=== PATIENT | female | born 1960 | race Caucasian/White ===

== ENCOUNTER → 2018-02-27 10:05 | Outpatient (CLI) | payer BC, SELFPAY ==
[2018-02-27 10:38] LABS: Specimen Label GENOVA
== END ==
PROVIDERS: PCP Anesthesiology Pain Medicine; Visit Provider Registered Nurse
DX: R19.8 Other specified symptoms and signs involving the digestive system and abdomen (principal); R53.83 Other fatigue; M85.80 Other specified disorders of bone density and structure, unspecified site
CPT/HCPCS: 36415; P9016

== ENCOUNTER → 2018-03-23 15:38 | Outpatient (CLI) | payer BC, SELFPAY ==
[2018-03-23 16:47] LABS: Alanine Aminotransferase 34 IU/L (9-52); Albumin 4.6 g/dL (3.5-5.0); Albumin Globulin Ratio 1.8 (1.0-2.8); Alkaline Phosphatase 92 U/L (38-126); Aspartate Aminotransferase 24 IU/L (14-36); Bilirubin Total 0.7 mg/dL (0.2-1.3); Blood Urea Nitrogen 23 mg/dL (7-17); Calcium 9.9 mg/dL (8.4-10.2); Carbon Dioxide 26 mmol/L (22-32); Chloride 103 mmol/L (98-107); Estimated Glomerular Filt Rate 56.7 mL/min (>60); Globulin 2.5 g/dL (1.7-4.1); Glucose 110 mg/dL (70-100); HEMOLYSIS < 15 (0-50); Potassium 4.3 mmol/L (3.4-5.1); Sodium 142 mmol/L (137-145); Total Protein 7.1 g/dL (6.3-8.2)
[2018-03-23 16:48] LABS: C-Reactive Protein Quant < 0.5 mg/dL (<1.0)
[2018-03-25 15:27] LABS: Homocysteine 11.7 umol/L (< 10.4)
[2018-03-27 14:46] LABS: Vitamin B6 39.6 ng/mL (2.1-21.7)
[2018-03-28 16:49] LABS: Methylmalonic Acid 187 nmol/L (87-318)
[2018-03-28 23:24] LABS: Zinc 74 mcg/dL (60-130)
== END ==
PROVIDERS: Visit Provider Registered Nurse
DX: T86.838 Other complications of bone graft (principal); E53.8 Deficiency of other specified B group vitamins; E53.9 Vitamin B deficiency, unspecified
CPT/HCPCS: 36415; 80053; 83090; 83921; 84207; 84630; 86140

== ENCOUNTER → 2018-03-31 10:08 | Outpatient (CLI) | payer BC, SELFPAY ==
[2018-03-31 11:06] LABS: Alanine Aminotransferase 26 IU/L (9-52); Albumin 4.3 g/dL (3.5-5.0); Albumin Globulin Ratio 1.9 (1.0-2.8); Alkaline Phosphatase 87 U/L (38-126); Aspartate Aminotransferase 21 IU/L (14-36); BUN Creatinine Ratio 12.5 (6-22); Bilirubin Total 0.8 mg/dL (0.2-1.3); Blood Urea Nitrogen 10 mg/dL (7-17); Calcium 9.4 mg/dL (8.4-10.2); Carbon Dioxide 29 mmol/L (22-32); Chloride 101 mmol/L (98-107); Estimated Glomerular Filt Rate > 60.0 mL/min (>60); Globulin 2.3 g/dL (1.7-4.1); Glucose 115 mg/dL (70-100); HEMOLYSIS < 15 (0-50); Potassium 3.9 mmol/L (3.4-5.1); Sodium 139 mmol/L (137-145); Total Protein 6.6 g/dL (6.3-8.2)
[2018-03-31 14:20] LABS: Microalbumi Creatinin Ratio Ur 15.9 ug/mg CR (<30); Microalbumin Urine Random 1.8 mg/dL (0-1.6)
== END ==
PROVIDERS: Visit Provider Registered Nurse
DX: R94.4 Abnormal results of kidney function studies (principal)
CPT/HCPCS: 36415; 80053; 82043; 82570

== ENCOUNTER → 2018-04-04 11:10 | Outpatient (CLI) | payer BC, SELFPAY ==
[2018-04-04 12:11] LABS: Add Manual Diff / Slide Review NO; Basophils Percent Auto 1.4 % (0-2); Eosinophils Percent Auto 3.2 % (2-4); Hematocrit 42.2 % (36-46); Hemoglobin 14.2 g/dL (12.0-16.0); Lymphocytes Percent Auto 27.9 % (25-40); Mean Corpuscular HGB Conc 33.7 % (30-36); Mean Corpuscular Hemoglobin 32.8 PG (26-34); Mean Corpuscular Volume 97.2 fL (80-100); Monocytes Percent Auto 8.4 % (3-14); Neutrophils Absolute Auto 3300 /uL (3000-5900); Neutrophils Percent Auto 59.1 % (50-75); Platelet Count 346 X10^3/uL (150-400); Red Blood Cell Count 4.34 X10^6/uL (4.0-5.2); Red Cell Distribution Width 12.4 % (11.6-14.8); White Blood Cell Count 5.6 X10^3/uL (4.5-11.0)
[2018-04-04 12:24] LABS: HEMOLYSIS < 15 (0-50); Iron 127 ug/dL (37-170)
[2018-04-04 12:31] LABS: Alanine Aminotransferase 36 IU/L (9-52); Albumin 4.7 g/dL (3.5-5.0); Albumin Globulin Ratio 1.9 (1.0-2.8); Alkaline Phosphatase 90 U/L (38-126); Aspartate Aminotransferase 27 IU/L (14-36); BUN Creatinine Ratio 12.5 (6-22); Bilirubin Total 1.2 mg/dL (0.2-1.3); Blood Urea Nitrogen 10 mg/dL (7-17); Calcium 9.9 mg/dL (8.4-10.2); Carbon Dioxide 29 mmol/L (22-32); Chloride 103 mmol/L (98-107); Estimated Glomerular Filt Rate > 60.0 mL/min (>60); Globulin 2.5 g/dL (1.7-4.1); Glucose 91 mg/dL (70-100); HEMOLYSIS < 15 (0-50); Potassium 4.6 mmol/L (3.4-5.1); Sodium 143 mmol/L (137-145); Total Protein 7.2 g/dL (6.3-8.2)
[2018-04-04 12:35] LABS: Percent Iron Saturation 38 % (15-50); Total Iron Binding Capacity 331 ug/dL (265-497); Transferrin 282 mg/dL (206-381)
[2018-04-04 12:58] LABS: Thyroid Stimulating Hormone 0.49 uIU/mL (0.47-4.68)
== END ==
PROVIDERS: Family Provider Anesthesiology Pain Medicine; PCP Registered Nurse; Visit Provider Physician Assistant
DX: R10.9 Unspecified abdominal pain (principal)
CPT/HCPCS: 36415; 80053; 83540; 83550; 84443; 85025

== ENCOUNTER → 2018-04-05 13:28 | Outpatient (CLI) | payer BC, SELFPAY ==
--- NOTE | 2018-04-05 13:39 | DI.CT.S_ITS ---
PROCEDURE: CT KIDNEY URETER BLADDER (KUB) INDICATIONS: Left flank pain TECHNIQUE: Noncontrast 5 mm thick sections acquired from the diaphragms to the symphysis. 5 mm thick coronal and sagittal reformats were then performed. For radiation dose reduction, the following was used: automated exposure control, adjustment of mA and/or kV according to patient size. COMPARISON: None. FINDINGS: Image quality: Excellent. Lung bases: Mild dependent bilateral lower lobe scarring versus atelectasis is present. There is a 12 mm diameter hypodensity within the lateral segment left hepatic lobe inferiorly measuring 14.4 Hounsfield units, which is indeterminate. Right hepatic lobe cyst is present anteroinferiorly measuring 40 mm. Lung bases are otherwise clear. Heart size is normal. Urinary system: Both kidneys are normal in size. There is an millimeter diameter region of cortical fat density within the superior pole left kidney laterally. No kidney stones. No hydronephrosis or perinephric fat stranding. Both ureters appear non-dilated throughout their expected courses. Urinary bladder is decompressed. Other solid organs: Liver is normal in size. Gallbladder demonstrates high density material within its lumen, consistent with sludge. Pancreas is normal in contours. Spleen is normal in size. No adrenal nodules. Peritoneum and bowel: Unenhanced bowel loops demonstrate normal wall thickness and caliber. No free fluid or air. Normal appendix. Nodes and vessels: No retroperitoneal or mesenteric adenopathy by size criteria. Aorta and inferior vena cava are normal in caliber. Abdominal wall: 11 mm fat-containing umbilical hernia. Pelvis: No free pelvic fluid. No inguinal hernias or adenopathy. Bones: No suspicious bony lesions. L5-S1 posterior fusion has been performed. Grade I anterolisthesis of L5 on S1 is present. No vertebral body compression fractures. IMPRESSION: 1. No evidence of urinary tract calcification, no retraction. 2. Normal appendix. 3. Small fat-containing umbilical hernia. 4. Small left superior pole renal angiomyolipoma. 5. Small indeterminate low-density focus within the lateral segment left hepatic lobe, which could be further assessed with ultrasound, if clinically indicated. Dictated by: Supriya Sierra M.D. on 04/05/2018 at 14:15 Approved by: Supriya Sierra M.D. on 04/05/2018 at 14:18
== END ==
PROVIDERS: Family Provider Anesthesiology Pain Medicine; PCP Registered Nurse; Visit Provider Physician Assistant
DX: R10.9 Unspecified abdominal pain (principal); K42.9 Umbilical hernia without obstruction or gangrene; D17.71 Benign lipomatous neoplasm of kidney
CPT/HCPCS: 74176

== ENCOUNTER → 2018-04-10 14:17 | Outpatient (CLI) | payer BC, SELFPAY ==
[2018-04-10 17:43] LABS: Alanine Aminotransferase 30 IU/L (9-52); Albumin 4.2 g/dL (3.5-5.0); Albumin Globulin Ratio 1.9 (1.0-2.8); Alkaline Phosphatase 84 U/L (38-126); Aspartate Aminotransferase 22 IU/L (14-36); BUN Creatinine Ratio 12.5 (6-22); Bilirubin Total 0.5 mg/dL (0.2-1.3); Blood Urea Nitrogen 10 mg/dL (7-17); Calcium 9.6 mg/dL (8.4-10.2); Carbon Dioxide 27 mmol/L (22-32); Chloride 103 mmol/L (98-107); Estimated Glomerular Filt Rate > 60.0 mL/min (>60); Globulin 2.2 g/dL (1.7-4.1); Glucose 81 mg/dL (70-100); HEMOLYSIS < 15 (0-50); Potassium 4.1 mmol/L (3.4-5.1); Sodium 140 mmol/L (137-145); Total Protein 6.4 g/dL (6.3-8.2)
[2018-04-10 17:50] LABS: Creatinine Urine Random 20.9 mg/dL; Microalbumi Creatinin Ratio Ur 28.7 ug/mg CR (<30); Microalbumin Urine Random < 0.6 mg/dL (0-1.6)
== END ==
PROVIDERS: Family Provider Registered Nurse; PCP Registered Nurse; Visit Provider Physician Assistant
DX: R94.4 Abnormal results of kidney function studies (principal); R43.8 Other disturbances of smell and taste
CPT/HCPCS: 36415; 80053; 82043; 82570; 83018

== ENCOUNTER → 2018-11-17 10:58 | Outpatient (CLI) | payer BC, SELFPAY ==
[2018-11-17 12:10] LABS: Add Manual Diff / Slide Review NO; Basophils Absolute Auto 100 /uL (0-100); Basophils Percent Auto 1.1 % (0-2); Eosinophils Absolute Auto 100 /uL (0-450); Eosinophils Percent Auto 2.6 % (2-4); Hematocrit 41.8 % (36-46); Hemoglobin 14.2 g/dL (12.0-16.0); Lymphocytes Absolute Auto 1700 /uL (1100-4500); Lymphocytes Percent Auto 28.5 % (25-40); Mean Corpuscular Hemoglobin 32.2 PG (26-34); Mean Corpuscular Volume 94.8 fL (80-100); Monocytes Absolute Auto 400 /uL (0-900); Monocytes Percent Auto 7.3 % (3-14); Neutrophils Absolute Auto 3500 /uL (1500-7000); Neutrophils Percent Auto 60.5 % (50-75); Platelet Count 280 X10^3/uL (150-400); Red Blood Cell Count 4.41 X10^6/uL (4.0-5.2); Red Cell Distribution Width 12.7 % (11.6-14.8); White Blood Cell Count 5.8 X10^3/uL (4.5-11.0)
== END ==
PROVIDERS: Family Provider Registered Nurse; PCP Registered Nurse; Visit Provider Internal Medicine Gastroenterology
DX: R53.82 Chronic fatigue, unspecified (principal)
CPT/HCPCS: 36415; 85025

== ENCOUNTER → 2018-11-27 09:16 | Outpatient (CLI) | payer BC, SELFPAY ==
[2018-11-27 10:10] LABS: Add Manual Diff / Slide Review NO; Basophils Absolute Auto 100 /uL (0-100); Basophils Percent Auto 1.4 % (0-2); Eosinophils Absolute Auto 200 /uL (0-450); Eosinophils Percent Auto 3.7 % (2-4); Hematocrit 41.8 % (36-46); Hemoglobin 14.4 g/dL (12.0-16.0); Lymphocytes Absolute Auto 1500 /uL (1100-4500); Lymphocytes Percent Auto 25.8 % (25-40); Mean Corpuscular HGB Conc 34.5 % (30-36); Mean Corpuscular Hemoglobin 32.8 PG (26-34); Monocytes Absolute Auto 300 /uL (0-900); Monocytes Percent Auto 5.4 % (3-14); Neutrophils Absolute Auto 3600 /uL (1500-7000); Neutrophils Percent Auto 63.7 % (50-75); Platelet Count 266 X10^3/uL (150-400); Red Blood Cell Count 4.39 X10^6/uL (4.0-5.2); Red Cell Distribution Width 12.8 % (11.6-14.8); White Blood Cell Count 5.7 X10^3/uL (4.5-11.0)
[2018-11-27 10:20] LABS: HEMOLYSIS < 15 (0-50); Iron 139 ug/dL (37-170)
[2018-11-27 10:38] LABS: Percent Iron Saturation 49 % (15-50); Total Iron Binding Capacity 283 ug/dL (265-497); Transferrin 243 mg/dL (206-381)
[2018-11-27 10:41] LABS: Alanine Aminotransferase 28 IU/L (9-52); Albumin 4.2 g/dL (3.5-5.0); Albumin Globulin Ratio 1.8 (1.0-2.8); Alkaline Phosphatase 96 U/L (38-126); Aspartate Aminotransferase 29 IU/L (14-36); BUN Creatinine Ratio 12.5 (6-22); Bilirubin Total 0.7 mg/dL (0.2-1.3); Blood Urea Nitrogen 10 mg/dL (7-17); Calcium 9.5 mg/dL (8.4-10.2); Carbon Dioxide 29 mmol/L (22-32); Chloride 106 mmol/L (98-107); Cholesterol 229 mg/dL (140-199); Estimated Glomerular Filt Rate > 60.0 mL/min (>60); Globulin 2.4 g/dL (1.7-4.1); Glucose 92 mg/dL (70-100); HDL Cholesterol 57 mg/dL (40-60); HEMOLYSIS < 15 (0-50); LDL Cholesterol Calculated 135 mg/dL (<100); Sodium 142 mmol/L (137-145); Total Protein 6.6 g/dL (6.3-8.2); Triglycerides 184 mg/dL (35-150)
[2018-11-27 10:59] LABS: Thyroid Stimulating Hormone 1.04 uIU/mL (0.47-4.68)
[2018-11-27 11:05] LABS: Cortisol AM (Before 10AM) 8.18 ug/dL (4.46-22.7)
[2018-11-27 11:40] LABS: Folate 7.3 ng/mL (2.76-20.0); Vitamin B12 > 1000 pg/mL (239-931)
[2018-11-27 12:29] LABS: Creatinine Urine Random 62.1 mg/dL; Protein (Total) Urine Random 10 mg/dL (0-12); Protein Creatinine Ratio Urine 0.16 GRAM/24H
[2018-11-29 15:19] LABS: Dehydroepiandrosterone Sulfate 94 mcg/dL (8-188)
[2018-11-30 09:04] LABS: Zinc 119 mcg/dL (60-130)
== END ==
PROVIDERS: PCP Registered Nurse; Visit Provider Registered Nurse
DX: R53.83 Other fatigue (principal); T86.838 Other complications of bone graft; N18.2 Chronic kidney disease, stage 2 (mild); Z13.220 Encounter for screening for lipoid disorders
CPT/HCPCS: 36415; 80053; 80061; 82533; 82570; 82607; 82627; 82746; 83036; 83540; 83550; 84156; 84443; 84630; 85025

== ENCOUNTER → 2018-12-03 07:18 | Outpatient (CLI) | payer BC, SELFPAY ==
[2018-12-03 08:08] LABS: Specimen Label SEND OUT KIT
== END ==
PROVIDERS: PCP Registered Nurse; Visit Provider Registered Nurse
DX: R19.8 Other specified symptoms and signs involving the digestive system and abdomen (principal); R53.83 Other fatigue; E63.9 Nutritional deficiency, unspecified; R53.82 Chronic fatigue, unspecified
CPT/HCPCS: 36415; 99001

== ENCOUNTER 2018-12-04 09:04 | Emergency (ER) | payer BC, SELFPAY ==
--- NOTE | 2018-12-04 09:11 | DI.RAD.S_ITS ---
PROCEDURE: XR CHEST 1V INDICATIONS: chest pain TECHNIQUE: One view of the chest was acquired. COMPARISON: None. FINDINGS: Surgical changes and devices: None. Lungs and pleura: Lungs are clear. No pleural effusions or pneumothorax. Mediastinum: Mediastinal contours appear normal. Heart size is normal. Bones and chest wall: No suspicious bony lesions. Overlying soft tissues appear unremarkable. IMPRESSION: No evidence acute pulmonary process. Dictated by: Jason Saucedo M.D. on 12/04/2018 at 10:03 Approved by: Jason Saucedo M.D. on 12/04/2018 at 10:03
[2018-12-04 09:16] VITALS: BP 145/82; PULSE 61; RESP 16; TEMP 36.8; O2SAT 98; BMI 27.4
[2018-12-04 09:23] VITALS: BP 145/82; PULSE 72; RESP 18; O2SAT 98
[2018-12-04] MEDS: PANTOPRAZOLE 40 MG VIAL IV (09:29)
[2018-12-04 09:30] LABS: Add Manual Diff / Slide Review NO; Basophils Absolute Auto 100 /uL (0-100); Basophils Percent Auto 1.2 % (0-2); Eosinophils Absolute Auto 100 /uL (0-450); Eosinophils Percent Auto 2.9 % (2-4); Hematocrit 39.9 % (36-46); Hemoglobin 13.7 g/dL (12.0-16.0); Lymphocytes Absolute Auto 1600 /uL (1100-4500); Lymphocytes Percent Auto 32.7 % (25-40); Mean Corpuscular HGB Conc 34.2 % (30-36); Mean Corpuscular Hemoglobin 32.3 PG (26-34); Mean Corpuscular Volume 94.4 fL (80-100); Monocytes Absolute Auto 400 /uL (0-900); Monocytes Percent Auto 7.9 % (3-14); Neutrophils Absolute Auto 2700 /uL (1500-7000); Neutrophils Percent Auto 55.3 % (50-75); Platelet Count 286 X10^3/uL (150-400); Red Blood Cell Count 4.23 X10^6/uL (4.0-5.2); Red Cell Distribution Width 12.8 % (11.6-14.8); White Blood Cell Count 4.8 X10^3/uL (4.5-11.0)
[2018-12-04 09:38] LABS: Prothrombin Time 11.1 SECONDS (10.1-12.7)
[2018-12-04] MEDS: ONDANSETRON 4 MG/2 ML INJ IV (09:38)
[2018-12-04 09:41] LABS: PTT Partial Thromboplastin Tim 35 SECONDS (26.4-36.2)
[2018-12-04 09:43] LABS: Alanine Aminotransferase 21 IU/L (9-52); Albumin 4.5 g/dL (3.5-5.0); Albumin Globulin Ratio 1.7 (1.0-2.8); Alkaline Phosphatase 87 U/L (38-126); Aspartate Aminotransferase 23 IU/L (14-36); Blood Urea Nitrogen 12 mg/dL (7-17); Calcium 9.6 mg/dL (8.4-10.2); Carbon Dioxide 24 mmol/L (22-32); Chloride 107 mmol/L (98-107); Creatine Kinase 53 U/L (30-135); Estimated Glomerular Filt Rate > 60.0 mL/min (>60); Globulin 2.6 g/dL (1.7-4.1); Glucose 96 mg/dL (70-100); HEMOLYSIS 35 (0-50); Lipase 185 U/L (23-300); Potassium 4.3 mmol/L (3.4-5.1); Sodium 141 mmol/L (137-145); Total Protein 7.1 g/dL (6.3-8.2)
[2018-12-04 09:50] VITALS: BP 156/86; PULSE 70; RESP 21; O2SAT 100
[2018-12-04 09:55] LABS: Troponin I < 0.012 ng/mL (0.01-0.034)
[2018-12-04 10:06] VITALS: BP 131/84; PULSE 60; RESP 16; O2SAT 95
[2018-12-04 10:09] LABS: Magnesium 2.2 mg/dL (1.6-2.3); Phosphorous 3.6 mg/dL (2.5-4.5)
[2018-12-04 10:10] VITALS: BP 153/79; PULSE 68; RESP 18; O2SAT 98
[2018-12-04 10:24] LABS: TSH w/ Reflex to FT4 1.24 uIU/mL (0.47-4.68)
--- NOTE | 2018-12-04 10:37 | ED.CHESTPAIN ---
HPI - Chest Pain General Chief Complaint: Chest Pain Stated Complaint: nausea,chest pressure Time Seen by Provider: 12/04/18 10:12 Source: patient and family Mode of arrival: ambulatory Limitations: no limitations History of Present Illness HPI narrative: Patient complains of fatigue, nausea vomiting, and ?wavy chest pressure? worse for the last few weeks. Patient states that she has had issues with fatigue and nausea ever since she was a child, and she attributes this possibly to her mother having toxemia when she was with the patient. Patient states that she has had to do her shopping in ?legs? because she has needed to rest in between and let her nausea go down. Patient states that her current symptoms are a worse version of her chronic symptoms. Patient denies any fevers or chills. No new cough. She states she has chronic dry cough, which is unchanged. Patient denies any lightheadedness or dizziness. She states that she has seen her primary provider, [facility], and nurse practitioner in [place], for these kinds of things in the past, but that she has not been able to see anybody over the last 6 months, due to being unable to get an appointment. Patient states that she lives in [place] with her in the winter time, and that they come up here for the summer months. Patient states she tried to get an appointment with someone in [place], but was unable. She states her symptoms or the worst over the winter, but have improved a little bit since. No other complaints at this time. Related Data Home Medications Medication Instructions Recorded Confirmed gabapentin 200 mg PO HS #0 03/24/16 04/02/18 Previous Rx's Medication Instructions Recorded ondansetron 4 mg PO Q6H PRN #20 tab 12/04/18 Allergies Allergy/AdvReac Type Severity Reaction Status Date / Time codeine Allergy Unknown Verified 12/04/18 09:16 Review of Systems Constitutional Denies chills, Denies fever(s), Denies lethargy and Denies weakness Eyes Denies change in vision, Denies eye discharge, Denies irritation and Denies loss of vision ENT Ears, Nose, Mouth, and Throat: Denies change in voice, Denies neck pain and Denies sore throat Cardiovascular Denies irregular heart rhythm, Denies lightheadedness, Denies palpitations, Denies dyspnea, Denies dyspnea on exertion and Denies orthopnea Comments: Chest pressure Respiratory Denies cough, Denies dyspnea, Denies dyspnea on exertion and Denies wheezing Gastrointestinal Gastrointestinal: Denies abdominal pain, Denies change in bowel habits, Denies diarrhea, Reports nausea and Reports vomiting Genitourinary Denies hematuria, Denies flank pain, Denies urinary incontinence and Denies urinary urgency Musculoskeletal Denies neck pain Integumentary/Breasts Denies pruritus, Denies erythema, Denies rash and Denies wounds Neurologic Denies confusion, Denies loss of vision and Denies weakness Psychiatric Denies anxiety, Denies confusion, Denies depression, Denies homicidal ideation and Denies suicidal ideation Endocrine Denies palpitations Hematologic/Lymphatic Denies easy bruising Allergic/Immunologic Denies wheezing [facility] Medical History Chronic fatigue (Acute) Chronic back pain (Acute) Chronic nausea (Acute) Surgical History Previous back surgery (Acute) Social History Smoking Status: Never smoker Social History Smoking Status: Never smoker Exam Initial Vital Signs Initial Vital Signs: Vital Signs Temperature 98.2 F 12/04/18 09:16 Pulse Rate 61 12/04/18 09:16 Respiratory Rate 16 12/04/18 09:16 Blood Pressure 145/82 H 12/04/18 09:16 Pulse Oximetry 98 12/04/18 09:16 Const General: cooperative, healthy appearing and well developed Nutritional Appearance: well nourished Orientation: alert, awake, oriented x3 and not confused Other: Patient is overall well-appearing. [facility] Head: normocephalic and atraumatic Ears: external ears normal Nose: external nose normal and No nasal discharge Face and sinus: face symmetric and No dry mucous membranes Mouth: oral mucosae normal and moist mucous membranes Teeth and gingiva: dentition normal Eyes General: appearance normal, both eyes and all related structures Eyelids: eyelids normal Conjunctivae: conjunctivae normal Sclera: sclerae normal Pupils: PERRL EOM: EOM intact bilaterally Neck Neck: normal visual inspection, trachea midline, No lymphadenopathy, No midline deformity and No JVD Lymphatic: No lymphedema Chest Chest: normal inspection of the chest Resp Effort & Inspection: normal respiratory effort, able to speak in complete sentences, no respiratory distress and no use of accessory muscles Auscultation: clear to auscultation bilaterally, no rales, no rhonchi and no wheezes Cardio Rate: regular rate Rhythm: regular rhythm Heart Sounds: no click, no gallops, no murmurs and no rubs Pulses: normal peripheral pulses GI Inspection: non-distended Palpation: soft, no hepatosplenomegaly, No guarding, No pulsatile mass and No tender Auscultation: normal bowel sounds Back/Spine/Pelvis Back: No CVA tenderness Cervical Spine: cervical ROM normal and No pain with cervical ROM Thoracic/Lumbar Spine: thoracic and lumbar spine normal to inspection Skin General: no rashes or lesions noted, No jaundice and No petechiae Neuro General: alert, oriented x3, gait normal and no focal motor deficits Speech: speech normal Extrem General: full ROM, no clubbing, cyanosis or edema, no pedal edema and no calf tenderness Psych Appearance: well kempt Mental Status: mental status grossly normal Attitude: cooperative Thought Content: normal and suicidality Judgment: judgment good Course Course Narrative: Patient was very well-appearing, but did have a plethora of ongoing complaints. She did seem to have a recent exacerbation of her nausea and fatigue, and was worked up for this. Workup was entirely negative. Patient did summon me to come back in the room, and stated that she believes she is allergic to ?chemicals?, and both is what is causing her symptoms. I have advised the patient that it is not clear what is causing her symptoms, as they are quite vague, but I have advised the patient that she should talk to her primary care physician about possible referral to endocrinology or an neuro psych sales specialist for further evaluation. At this point in time, no emergent condition has been identified. We have discussed the usual indications for return. Patient is deemed stable for discharge home. Orders Ordered: Discontinued Medications Ondansetron HCl (Zofran) 4 mg IV NOW ONE Stop: 12/04/18 09:37 Last Admin: 12/04/18 09:38 Dose: 4 mg Pantoprazole Sodium (Protonix) 40 mg IV NOW ONE Stop: 12/04/18 09:27 Last Admin: 12/04/18 09:29 Dose: 40 mg Vital Signs - 8 hr 12/04/18 09:16 12/04/18 09:23 12/04/18 10:06 Temperature 98.2 F Pulse Rate 61 72 60 Respiratory Rate 16 18 16 Blood Pressure 145/82 H Blood Pressure [Left Arm] 145/82 H 131/84 Pulse Oximetry 98 98 95 MDM - Chest Pain Medical Records Data Attestation: I reviewed the patient's medical records. Lab Data Attestation: I reviewed the patient's lab results. Result diagrams: 12/04/18 09:21 12/04/18 09:21 Lab Results 12/04/18 12/04/18 12/04/18 Range/Units 09:21 09:21 09:21 WBC 4.8 (4.5-11.0) X10^3/uL RBC 4.23 (4.0-5.2) X10^6/uL Hgb 13.7 (12.0-16.0) g/dL Hct 39.9 (36-46) % MCV 94.4 (80-100) fL MCH 32.3 (26-34) PG MCHC 34.2 (30-36) % RDW 12.8 (11.6-14.8) % Plt Count 286 (150-400) X10^3/uL Neut % (Auto) 55.3 (50-75) % Lymph % (Auto) 32.7 (25-40) % [place] % (Auto) 7.9 (3-14) % Eos % (Auto) 2.9 (2-4) % Baso % (Auto) 1.2 (0-2) % Neut # (Auto) 2700 (1835-4884) /uL Lymph # (Auto) 1600 (2878-5011) /uL [place] # (Auto) 400 (0-900) /uL Eos # (Auto) 100 (0-450) /uL Baso # (Auto) 100 (0-100) /uL PT 11.1 (10.1-12.7) SECONDS INR 1.0 (0.9-1.3) APTT 35 (26.4-36.2) SECONDS Sodium 141 (137-145) mmol/L Potassium 4.3 (3.4-5.1) mmol/L Chloride 107 (98-107) mmol/L Carbon Dioxide 24 (22-32) mmol/L BUN 12 (7-17) mg/dL Creatinine 0.80 (0.52-1.04) mg/dL Estimated GFR > 60.0 (>60) mL/min BUN/Creatinine Ratio 15.0 (6-22) Glucose 96 (70-100) mg/dL Calcium 9.6 (8.4-10.2) mg/dL Phosphorus (2.5-4.5) mg/dL Magnesium (1.6-2.3) mg/dL Total Bilirubin 1.0 (0.2-1.3) mg/dL AST 23 (14-36) IU/L ALT 21 (9-52) IU/L Alkaline Phosphatase 87 (38-126) U/L Total Creatine Kinase 53 (30-135) U/L CK-MB (CK-2) TNP CK-MB (CK-2) Rel Index TNP Troponin I < 0.012 (0.01-0.034) ng/mL Total Protein 7.1 (6.3-8.2) g/dL Albumin 4.5 (3.5-5.0) g/dL Globulin 2.6 (1.7-4.1) g/dL Albumin/Globulin Ratio 1.7 (1.0-2.8) Lipase 185 (23-300) U/L TSH (0.47-4.68) uIU/mL 12/04/18 12/04/18 Range/Units 09:21 09:21 WBC (4.5-11.0) X10^3/uL RBC (4.0-5.2) X10^6/uL Hgb (12.0-16.0) g/dL Hct (36-46) % MCV (80-100) fL MCH (26-34) PG MCHC (30-36) % RDW (11.6-14.8) % Plt Count (150-400) X10^3/uL Neut % (Auto) (50-75) % Lymph % (Auto) (25-40) % [place] % (Auto) (3-14) % Eos % (Auto) (2-4) % Baso % (Auto) (0-2) % Neut # (Auto) (6838-4264) /uL Lymph # (Auto) (6438-1729) /uL [place] # (Auto) (0-900) /uL Eos # (Auto) (0-450) /uL Baso # (Auto) (0-100) /uL PT (10.1-12.7) SECONDS INR (0.9-1.3) APTT (26.4-36.2) SECONDS Sodium (137-145) mmol/L Potassium (3.4-5.1) mmol/L Chloride (98-107) mmol/L Carbon Dioxide (22-32) mmol/L BUN (7-17) mg/dL Creatinine (0.52-1.04) mg/dL Estimated GFR (>60) mL/min BUN/Creatinine Ratio (6-22) Glucose (70-100) mg/dL Calcium (8.4-10.2) mg/dL Phosphorus 3.6 (2.5-4.5) mg/dL Magnesium 2.2 (1.6-2.3) mg/dL Total Bilirubin (0.2-1.3) mg/dL AST (14-36) IU/L ALT (9-52) IU/L Alkaline Phosphatase (38-126) U/L Total Creatine Kinase (30-135) U/L CK-MB (CK-2) CK-MB (CK-2) Rel Index Troponin I (0.01-0.034) ng/mL Total Protein (6.3-8.2) g/dL Albumin (3.5-5.0) g/dL Globulin (1.7-4.1) g/dL Albumin/Globulin Ratio (1.0-2.8) Lipase (23-300) U/L TSH 1.24 (0.47-4.68) uIU/mL Urine Dip Bedside Urine Glucose Negative Bedside Urine Bilirubin - Negative Bedside Urine Ketone - Negative Urine Specific [place] 1.015 Bedside Urine Occult Blood - Negative Bedside Urine pH 7.0 Bedside Urine Protein - Negative Bedside Urine Urobilinogen - Negative Bedside Urine Nitrite - Negative Bedside Urine Leukocytes - Negative Esterase ECG Data Attestation: I personally reviewed and interpreted this ECG as follows: (See below) Interpretation: Twelve lead EKG from December 04, 2018 at 9:20 a.m., as follows: Regular ventricular rhythm with a rate of 57 ND interval 156 millisecond QRS duration 88 millisecond QTC interval 414 millisecond Left axis deviation No significant ST T wave changes No ectopy Interpretation: Sinus bradycardia; marked left axis deviation; no signs of acute ischemia; abnormal EKG as interpreted by ED . Discharge Plan Departure Patient Disposition: Home Clinical Impression: Chronic nausea, Chronic fatigue, History of spinal surgery Chest pain Qualifiers: Chest pain type: unspecified Qualified Code(s): R07.9 - Chest pain, unspecified Discharge Date/Time: 12/04/18 12:18 Interventions: ED Discharge Assessment Last Done: 12/04/18 12:16 Instructions: DI for Vomiting -- Adult, DI for Chest Pain, DI for Chronic Fatigue Syndrome Activity Restrictions/Additional Instructions: Your labs are completely normal. There is no evidence of a serious or emergent condition causing your current symptoms at this time. It is possible that you have contracted one of the many viruses that are going around, which is causing more intense nausea on top of the your chronic symptoms. Please follow up with your primary doctor to discuss further management of your symptoms. In the meantime, you may take the anti nausea medication, as needed. Your prescription has been sent electronically to [facility] in [place]. Prescriptions: New ondansetron 4 mg tablet,disintegrating 4 mg PO Q6H PRN (Reason: nausea and vomiting) Qty: 20 RF: 0 No Action gabapentin 100 MG capsule 200 mg PO HS Qty: 0 RF: 0 Referrals: Natty Womack ARNP [Primary Care Provider] -
--- NOTE | 2018-12-04 10:44 | ED_ITS ---
HPI - Chest Pain General Chief Complaint: Chest Pain Stated Complaint: nausea,chest pressure Time Seen by Provider: 12/04/18 10:12 Source: patient and family Mode of arrival: ambulatory Limitations: no limitations History of Present Illness HPI narrative: Patient complains of fatigue, nausea vomiting, and ?wavy chest pressure? worse for the last few weeks. Patient states that she has had issues with fatigue and nausea ever since she was a child, and she attributes this possibly to her mother having toxemia when she was with the patient. Patient states that she has had to do her shopping in ?legs? because she has needed to rest in between and let her nausea go down. Patient states that her current symptoms are a worse version of her chronic symptoms. Patient denies any fevers or chills. No new cough. She states she has chronic dry cough, which is unchanged. Patient denies any lightheadedness or dizziness. She states that she has seen her primary provider, who is [facility], and nurse practitioner in [place], for these kinds of things in the past, but that she has not been able to see anybody over the last 6 months, due to being unable to get an appointment. Patient states that she lives in [place] with her in the winter time, and that they come up here for the summer months. Patient states she tried to get an appointment with someone in [place], but was unable. She states her symptoms or the worst over the winter, but have improved a little bit since. No other complaints at this time. Related Data Home Medications Medication Instructions Recorded Confirmed gabapentin 200 mg PO HS #0 03/24/16 04/02/18 Previous Rx's Medication Instructions Recorded ondansetron 4 mg PO Q6H PRN #20 tab 12/04/18 Allergies Allergy/AdvReac Type Severity Reaction Status Date / Time codeine Allergy Unknown Verified 12/04/18 09:16 Review of Systems Constitutional Denies chills, Denies fever(s), Denies lethargy and Denies weakness Eyes Denies change in vision, Denies eye discharge, Denies irritation and Denies loss of vision ENT Ears, Nose, Mouth, and Throat: Denies change in voice, Denies neck pain and Denies sore throat Cardiovascular Denies irregular heart rhythm, Denies lightheadedness, Denies palpitations, Denies dyspnea, Denies dyspnea on exertion and Denies orthopnea Comments: Chest pressure Respiratory Denies cough, Denies dyspnea, Denies dyspnea on exertion and Denies wheezing Gastrointestinal Gastrointestinal: Denies abdominal pain, Denies change in bowel habits, Denies diarrhea, Reports nausea and Reports vomiting Genitourinary Denies hematuria, Denies flank pain, Denies urinary incontinence and Denies urinary urgency Musculoskeletal Denies neck pain Integumentary/Breasts Denies pruritus, Denies erythema, Denies rash and Denies wounds Neurologic Denies confusion, Denies loss of vision and Denies weakness Psychiatric Denies anxiety, Denies confusion, Denies depression, Denies homicidal ideation and Denies suicidal ideation Endocrine Denies palpitations Hematologic/Lymphatic Denies easy bruising Allergic/Immunologic Denies wheezing [facility] Medical History Chronic fatigue (Acute) Chronic back pain (Acute) Chronic nausea (Acute) Surgical History Previous back surgery (Acute) Social History Smoking Status: Never smoker Social History Smoking Status: Never smoker Exam Initial Vital Signs Initial Vital Signs: Vital Signs Temperature 98.2 F 12/04/18 09:16 Pulse Rate 61 12/04/18 09:16 Respiratory Rate 16 12/04/18 09:16 Blood Pressure 145/82 H 12/04/18 09:16 Pulse Oximetry 98 12/04/18 09:16 Const General: cooperative, healthy appearing and well developed Nutritional Appearance: well nourished Orientation: alert, awake, oriented x3 and not confused Other: Patient is overall well-appearing. [facility] Head: normocephalic and atraumatic Ears: external ears normal Nose: external nose normal and No nasal discharge Face and sinus: face symmetric and No dry mucous membranes Mouth: oral mucosae normal and moist mucous membranes Teeth and gingiva: dentition normal Eyes General: appearance normal, both eyes and all related structures Eyelids: eyelids normal Conjunctivae: conjunctivae normal Sclera: sclerae normal Pupils: PERRL EOM: EOM intact bilaterally Neck Neck: normal visual inspection, trachea midline, No lymphadenopathy, No midline deformity and No JVD Lymphatic: No lymphedema Chest Chest: normal inspection of the chest Resp Effort & Inspection: normal respiratory effort, able to speak in complete sentences, no respiratory distress and no use of accessory muscles Auscultation: clear to auscultation bilaterally, no rales, no rhonchi and no wheezes Cardio Rate: regular rate Rhythm: regular rhythm Heart Sounds: no click, no gallops, no murmurs and no rubs Pulses: normal peripheral pulses GI Inspection: non-distended Palpation: soft, no hepatosplenomegaly, No guarding, No pulsatile mass and No tender Auscultation: normal bowel sounds Back/Spine/Pelvis Back: No CVA tenderness Cervical Spine: cervical ROM normal and No pain with cervical ROM Thoracic/Lumbar Spine: thoracic and lumbar spine normal to inspection Skin General: no rashes or lesions noted, No jaundice and No petechiae Neuro General: alert, oriented x3, gait normal and no focal motor deficits Speech: speech normal Extrem General: full ROM, no clubbing, cyanosis or edema, no pedal edema and no calf tenderness Psych Appearance: well kempt Mental Status: mental status grossly normal Attitude: cooperative Thought Content: normal and suicidality Judgment: judgment good Course Course Narrative: Patient was very well-appearing, but did have a plethora of ongoing complaints. She did seem to have a recent exacerbation of her nausea and fatigue, and was worked up for this. Workup was entirely negative. Patient did summon me to come back in the room, and stated that she believes she is allergic to ?chemicals?, and both is what is causing her symptoms. I have advised the patient that it is not clear what is causing her symptoms, as they are quite vague, but I have advised the patient that she should talk to her primary care physician about possible referral to endocrinology or an foiling machine operator for further evaluation. At this point in time, no emergent condition has been identified. We have discussed the usual indications for return. Patient is deemed stable for discharge home. Orders Ordered: Discontinued Medications Ondansetron HCl (Zofran) 4 mg IV NOW ONE Stop: 12/04/18 09:37 Last Admin: 12/04/18 09:38 Dose: 4 mg Pantoprazole Sodium (Protonix) 40 mg IV NOW ONE Stop: 12/04/18 09:27 Last Admin: 12/04/18 09:29 Dose: 40 mg Vital Signs - 8 hr 12/04/18 09:16 12/04/18 09:23 12/04/18 10:06 Temperature 98.2 F Pulse Rate 61 72 60 Respiratory Rate 16 18 16 Blood Pressure 145/82 H Blood Pressure [Left Arm] 145/82 H 131/84 Pulse Oximetry 98 98 95 MDM - Chest Pain Medical Records Data Attestation: I reviewed the patient's medical records. Lab Data Attestation: I reviewed the patient's lab results. Result diagrams: 12/04/18 09:21 12/04/18 09:21 Lab Results 12/04/18 12/04/18 12/04/18 Range/Units 09:21 09:21 09:21 WBC 4.8 (4.5-11.0) X10^3/uL RBC 4.23 (4.0-5.2) X10^6/uL Hgb 13.7 (12.0-16.0) g/dL Hct 39.9 (36-46) % MCV 94.4 (80-100) fL MCH 32.3 (26-34) PG MCHC 34.2 (30-36) % RDW 12.8 (11.6-14.8) % Plt Count 286 (150-400) X10^3/uL Neut % (Auto) 55.3 (50-75) % Lymph % (Auto) 32.7 (25-40) % [place] % (Auto) 7.9 (3-14) % Eos % (Auto) 2.9 (2-4) % Baso % (Auto) 1.2 (0-2) % Neut # (Auto) 2700 (6132-2071) /uL Lymph # (Auto) 1600 (2878-4493) /uL [place] # (Auto) 400 (0-900) /uL Eos # (Auto) 100 (0-450) /uL Baso # (Auto) 100 (0-100) /uL PT 11.1 (10.1-12.7) SECONDS INR 1.0 (0.9-1.3) APTT 35 (26.4-36.2) SECONDS Sodium 141 (137-145) mmol/L Potassium 4.3 (3.4-5.1) mmol/L Chloride 107 (98-107) mmol/L Carbon Dioxide 24 (22-32) mmol/L BUN 12 (7-17) mg/dL Creatinine 0.80 (0.52-1.04) mg/dL Estimated GFR > 60.0 (>60) mL/min BUN/Creatinine Ratio 15.0 (6-22) Glucose 96 (70-100) mg/dL Calcium 9.6 (8.4-10.2) mg/dL Phosphorus (2.5-4.5) mg/dL Magnesium (1.6-2.3) mg/dL Total Bilirubin 1.0 (0.2-1.3) mg/dL AST 23 (14-36) IU/L ALT 21 (9-52) IU/L Alkaline Phosphatase 87 (38-126) U/L Total Creatine Kinase 53 (30-135) U/L CK-MB (CK-2) TNP CK-MB (CK-2) Rel Index TNP Troponin I < 0.012 (0.01-0.034) ng/mL Total Protein 7.1 (6.3-8.2) g/dL Albumin 4.5 (3.5-5.0) g/dL Globulin 2.6 (1.7-4.1) g/dL Albumin/Globulin Ratio 1.7 (1.0-2.8) Lipase 185 (23-300) U/L TSH (0.47-4.68) uIU/mL 12/04/18 12/04/18 Range/Units 09:21 09:21 WBC (4.5-11.0) X10^3/uL RBC (4.0-5.2) X10^6/uL Hgb (12.0-16.0) g/dL Hct (36-46) % MCV (80-100) fL MCH (26-34) PG MCHC (30-36) % RDW (11.6-14.8) % Plt Count (150-400) X10^3/uL Neut % (Auto) (50-75) % Lymph % (Auto) (25-40) % [place] % (Auto) (3-14) % Eos % (Auto) (2-4) % Baso % (Auto) (0-2) % Neut # (Auto) (1630-3420) /uL Lymph # (Auto) (1312-3697) /uL [place] # (Auto) (0-900) /uL Eos # (Auto) (0-450) /uL Baso # (Auto) (0-100) /uL PT (10.1-12.7) SECONDS INR (0.9-1.3) APTT (26.4-36.2) SECONDS Sodium (137-145) mmol/L Potassium (3.4-5.1) mmol/L Chloride (98-107) mmol/L Carbon Dioxide (22-32) mmol/L BUN (7-17) mg/dL Creatinine (0.52-1.04) mg/dL Estimated GFR (>60) mL/min BUN/Creatinine Ratio (6-22) Glucose (70-100) mg/dL Calcium (8.4-10.2) mg/dL Phosphorus 3.6 (2.5-4.5) mg/dL Magnesium 2.2 (1.6-2.3) mg/dL Total Bilirubin (0.2-1.3) mg/dL AST (14-36) IU/L ALT (9-52) IU/L Alkaline Phosphatase (38-126) U/L Total Creatine Kinase (30-135) U/L CK-MB (CK-2) CK-MB (CK-2) Rel Index Troponin I (0.01-0.034) ng/mL Total Protein (6.3-8.2) g/dL Albumin (3.5-5.0) g/dL Globulin (1.7-4.1) g/dL Albumin/Globulin Ratio (1.0-2.8) Lipase (23-300) U/L TSH 1.24 (0.47-4.68) uIU/mL Urine Dip Bedside Urine Glucose Negative Bedside Urine Bilirubin - Negative Bedside Urine Ketone - Negative Urine Specific [place] 1.015 Bedside Urine Occult Blood - Negative Bedside Urine pH 7.0 Bedside Urine Protein - Negative Bedside Urine Urobilinogen - Negative Bedside Urine Nitrite - Negative Bedside Urine Leukocytes - Negative Esterase ECG Data Attestation: I personally reviewed and interpreted this ECG as follows: (See below) Interpretation: Twelve lead EKG from December 04, 2018 at 9:20 a.m., as follows: Regular ventricular rhythm with a rate of 57 NC interval 156 millisecond QRS duration 88 millisecond QTC interval 414 millisecond Left axis deviation No significant ST T wave changes No ectopy Interpretation: Sinus bradycardia; marked left axis deviation; no signs of acute ischemia; abnormal EKG as interpreted by ED . Discharge Plan Departure Patient Disposition: Home Clinical Impression: Chronic nausea, Chronic fatigue, History of spinal surgery Chest pain Qualifiers: Chest pain type: unspecified Qualified Code(s): R07.9 - Chest pain, unspecified Discharge Date/Time: 12/04/18 12:18 Interventions: ED Discharge Assessment Last Done: 12/04/18 12:16 Instructions: DI for Vomiting -- Adult, DI for Chest Pain, DI for Chronic Fatigue Syndrome Activity Restrictions/Additional Instructions: Your labs are completely normal. There is no evidence of a serious or emergent condition causing your current symptoms at this time. It is possible that you have contracted one of the many viruses that are going around, which is causing more intense nausea on top of the your chronic symptoms. Please follow up with your primary doctor to discuss further management of your symptoms. In the meantime, you may take the anti nausea medication, as needed. Your prescription has been sent electronically to [facility] in [place]. Prescriptions: New ondansetron 4 mg tablet,disintegrating 4 mg PO Q6H PRN (Reason: nausea and vomiting) Qty: 20 RF: 0 No Action gabapentin 100 MG capsule 200 mg PO HS Qty: 0 RF: 0 Referrals: Natty Womack ARNP [Primary Care Provider] -
[2018-12-04 11:24] VITALS: BP 138/72; PULSE 80; RESP 14; O2SAT 98
== END 2018-12-04 12:18 | disposition home or self-care (01) ==
PROVIDERS: Emergency Provider Emergency Medicine; PCP Registered Nurse
DX: R07.9 Chest pain, unspecified (principal)
CPT/HCPCS: 36591; 71045; 80053; 81003; 82550; 83690; 83735; 84100; 84443; 84484; 85025; 85610; 85730; 93005; 93010; 96374; 96375; 99283; 99285; C9113; J2405

== ENCOUNTER → 2019-01-28 09:59 | Outpatient (CLI) | payer BC, SELFPAY ==
[2019-01-28 10:33] LABS: Add Manual Diff / Slide Review NO; Basophils Absolute Auto 100 /uL (0-100); Basophils Percent Auto 1.3 % (0-2); Eosinophils Absolute Auto 100 /uL (0-450); Eosinophils Percent Auto 2.2 % (2-4); Hematocrit 41.5 % (36-46); Hemoglobin 14.3 g/dL (12.0-16.0); Lymphocytes Absolute Auto 1400 /uL (1100-4500); Lymphocytes Percent Auto 28.1 % (25-40); Mean Corpuscular HGB Conc 34.6 % (30-36); Mean Corpuscular Hemoglobin 32.8 PG (26-34); Mean Corpuscular Volume 94.9 fL (80-100); Monocytes Absolute Auto 300 /uL (0-900); Monocytes Percent Auto 6.4 % (3-14); Neutrophils Absolute Auto 3200 /uL (1500-7000); Platelet Count 319 X10^3/uL (150-400); Red Blood Cell Count 4.37 X10^6/uL (4.0-5.2); Red Cell Distribution Width 12.8 % (11.6-14.8); White Blood Cell Count 5.1 X10^3/uL (4.5-11.0)
[2019-01-28 11:47] LABS: Folate 12.3 ng/mL (2.76-20.0); Vitamin B12 > 1000 pg/mL (239-931)
== END ==
PROVIDERS: PCP Registered Nurse; Visit Provider Registered Nurse
DX: R79.89 Other specified abnormal findings of blood chemistry (principal)
CPT/HCPCS: 36415; 82607; 82746; 83921; 85025

== ENCOUNTER → 2019-02-01 08:28 | Outpatient (CLI) | payer BC, SELFPAY ==
[2019-02-01 09:57] LABS: Alanine Aminotransferase 19 IU/L (9-52); Albumin 4.2 g/dL (3.5-5.0); Albumin Globulin Ratio 1.7 (1.0-2.8); Alkaline Phosphatase 92 U/L (38-126); Aspartate Aminotransferase 17 IU/L (14-36); BUN Creatinine Ratio 17.5 (6-22); Bilirubin Total 0.6 mg/dL (0.2-1.3); Blood Urea Nitrogen 14 mg/dL (7-17); Calcium 9.6 mg/dL (8.4-10.2); Carbon Dioxide 30 mmol/L (22-32); Chloride 106 mmol/L (98-107); Cholesterol 210 mg/dL (140-199); Estimated Glomerular Filt Rate > 60.0 mL/min (>60); Globulin 2.5 g/dL (1.7-4.1); Glucose 97 mg/dL (80-110); HDL Cholesterol 63 mg/dL (40-60); HEMOLYSIS < 15 (0-50); LDL Cholesterol Calculated 125 mg/dL (<100); Potassium 4.7 mmol/L (3.4-5.1); Sodium 142 mmol/L (137-145); Total Protein 6.7 g/dL (6.3-8.2); Triglycerides 111 mg/dL (35-150)
[2019-02-01 10:00] LABS: High Sensitivity CRP - Cardiac 0.4 mg/L (1.0-3.0)
[2019-02-01 10:27] LABS: Cortisol AM (Before 10AM) 8.45 ug/dL (4.46-22.7); Thyroid Stimulating Hormone 1.76 uIU/mL (0.47-4.68)
[2019-02-01 10:28] LABS: Estradiol, Total 14.4 pg/mL
== END ==
PROVIDERS: PCP Registered Nurse; Visit Provider Registered Nurse
DX: E78.5 Hyperlipidemia, unspecified (principal); R79.89 Other specified abnormal findings of blood chemistry; R53.83 Other fatigue
CPT/HCPCS: 36415; 80053; 80061; 82533; 82627; 82670; 83090; 84443; 86140

== ENCOUNTER 2019-02-05 11:15 | Outpatient (RCR) | payer BC, SELFPAY ==
--- NOTE | 2018-12-26 15:21 | PT.OIE ---
Current Diagnoses Sciatica, unspecified side (12/20/18) Low back pain (12/20/18) Past Medical History (Last Reviewed 12/04/18 @ 10:42 by Marilyn Resendiz MD) Chronic fatigue (Acute) Chronic back pain (Acute) Chronic nausea (Acute) Past Surgical History (Last Reviewed 12/04/18 @ 10:42 by Marilyn Resendiz MD) Previous back surgery (Acute) Provider Visit Care Team Role Provider Type JESUS MANUEL Kumar Primary Care Provider Non-Staff Specialty: Medical Address: [address] [place] [address], [id number] Email: Kerri Cárdenas MD Attending Provider Non-Staff Specialty: Medical Address: [address] [place] [address], [id number] Email: Physical Therapy Initial Evaluation PT-OP-A Visit Information Start: 12/20/18 09:48 Freq: Status: Active Protocol: Document 12/20/18 09:45 [facility] (Rec: 12/26/18 15:04 [facility] [email or web address]) Out-Patient Physical Therapy Visit Information Visit Information Visit Type Initial Evaluation Visit Note 57 year old female with left sided sciatic and nerve pain. Hx of L5-S1 fusion Visit Start Time 09:45 Visit Stop Time 10:30 Total Visit Minutes 45 Visit Number 1 Number of [employer]LL[employer] CAPTAIN Visits 0 Evaluation Information Evaluation Date 12/20/18 PT-OP-B Current Condition Start: 12/20/18 09:48 Freq: Status: Active Protocol: Document 12/20/18 09:48 [facility] (Rec: 12/20/18 10:01 [facility] [id number]) Current Condition History of Current Condition Onset Date 2012 SURGERY History of Current Condition SURGERY IN 2013 L5 SI fusion. Symptoms included difficulty sitting and lowback was really painful. [place] spondylolethesis. Now able to sit but she cant sit as long as driving to [place] and back in the same day Driving that far increases pain and compression and sets her back too far. Feels pain at the left hamstring attachment. She has been told she has micro tearing at her hamstring attachment. Walking distance approximatley 1/4 mile with pain increasing . Feels like the fascia is knotted in the medial gluteal region. When she came out of surgery the whole side of her left pubic bone was tender. Pain rated between a 5 ad a 6. Limited with activities that include bending and picking things up off the floor. Treatment Goals Patient/Caregiver Goals Goals include decreasing pain and improving mobility PT-OP-F Manual Assessment Start: 12/26/18 14:49 Freq: Status: Active Protocol: Document 12/20/18 09:45 [facility] (Rec: 12/26/18 15:04 [facility] [email or web address]) Manual Assessments Soft Tissue Assessment Soft Tissue Mobility Assessment myofascial tightness across the left greater than right lumbar paraspinals and gluteal region including the piriformis and obturator internus, hamstring proximal attachment on the left and the quadratus lumborum Joint Mobility Assessment Joint Mobility Assessment + ASLR test for SI instability Other Manual Assessments Other Manual Assessments + test for pudendal nerve irritation just medial to the ischial tuberosity on the left PT-OP-J Posture/Palpation/Skin Start: 12/26/18 14:49 Freq: Status: Active Protocol: Document 12/20/18 09:45 [facility] (Rec: 12/26/18 15:04 [facility] [email or web address]) Posture Evaluation Position Standing L-Spine Posture Increased Lordosis Pelvis Posture Posterior Tilted Palpation Assessment Location Two Palpation Location lumbar paraspinals Palpation Findings Soft Tissue Tightness Spasm Muscle Guarding One Palpation Location left gluteals, piriformis, obturator internus Palpation Findings Soft Tissue Tightness Spasm Muscle Guarding Tenderness PT-OP-K Range of Motion Start: 12/26/18 14:49 Freq: Status: Active Protocol: Document 12/20/18 09:45 [facility] (Rec: 12/26/18 15:04 [facility] [email or web address]) Hip Goniometric Range of Motion Hip Right Hip ROM WFL Yes Left Hip ROM WFL No Testing Position Supine Flexion w/Knee Flexed 90 Straight Leg Raise 60 Hip ROM Limitations Comments Joya feels pain when she is flexing her left hip and bringing her knee to her chest she notes she feels increased pain with this PT-OP-M Strength Start: 12/26/18 14:49 Freq: Status: Active Protocol: Document 12/20/18 09:45 [facility] (Rec: 12/26/18 15:04 [facility] [email or web address]) Trunk Strength Trunk Manual Muscle Testing Testing Position Supine Flexion 3 Fair Core Stabilization poor core activation and TA recruitment, difficulty recruiting the transverse abdominals without the upper abdominal wall. PT-OP-Q Treatments Start: 12/26/18 14:49 Freq: Status: Active Protocol: Document 12/20/18 09:45 [facility] (Rec: 12/26/18 15:04 [facility] [email or web address]) Manual Therapy Treatment Soft Tissue Mobilization 1 Body Location left gluteals and low back Mobilization Type Myofascial Release Intensity/Depth Superficial Body Position Prone Comments Trial of MFR over the piriformis, lumbar paraspinals and obturator internus PT-OP-T Assessment and Plan Start: 12/26/18 14:49 Freq: Status: Active Protocol: Document 12/20/18 09:45 [facility] (Rec: 12/26/18 15:04 [facility] [email or web address]) Physical Therapy Assessment Rehab Potential Rehabilitation Potential Good Evaluation Complexity Number of Personal Factors/Comorbidities 0 Number of Body Systems Impaired 1-2 Clinical Presentation at Evaluation Stable Impairments Impairments Activity Tolerance Pain Posture ROM Soft Tissue Mobility Strength
--- NOTE | 2018-12-26 15:29 | PT.OIE ---
Current Diagnoses Sciatica, unspecified side (12/20/18) Low back pain (12/20/18) Past Medical History (Last Reviewed 12/04/18 @ 10:42 by Marilyn Resendiz MD) Chronic fatigue (Acute) Chronic back pain (Acute) Chronic nausea (Acute) Past Surgical History (Last Reviewed 12/04/18 @ 10:42 by Marilyn Resendiz MD) Previous back surgery (Acute) Provider Visit Care Team Role Provider Type JESUS MANUEL Kumar Primary Care Provider Non-Staff Specialty: Medical Address: [address] [place] [address], [id number] Email: Kerri Cárdenas MD Attending Provider Non-Staff Specialty: Medical Address: [address] [place] [address], [id number] Email: Physical Therapy Initial Evaluation PT-OP-A Visit Information Start: 12/20/18 09:48 Freq: Status: Active Protocol: Document 12/20/18 09:45 [facility] (Rec: 12/26/18 15:04 [facility] [email or web address]) Out-Patient Physical Therapy Visit Information Visit Information Visit Type Initial Evaluation Visit Note 57 year old female with left sided sciatic and nerve pain. Hx of L5-S1 fusion Visit Start Time 09:45 Visit Stop Time 10:30 Total Visit Minutes 45 Visit Number 1 Number of SPRAY RIG OPERATOR Visits 0 Evaluation Information Evaluation Date 12/20/18 PT-OP-B Current Condition Start: 12/20/18 09:48 Freq: Status: Active Protocol: Document 12/20/18 09:45 [facility] (Rec: 12/20/18 10:01 [facility] [id number]) Current Condition History of Current Condition Onset Date 2012 SURGERY History of Current Condition SURGERY IN 2013 L5 SI fusion. Symptoms included difficulty sitting and lowback was really painful. Junivinille spondylolethesis. Now able to sit but she cant sit as long as driving to [place] and back in the same day Driving that far increases pain and compression and sets her back too far. Feels pain at the left hamstring attachment. She has been told she has micro tearing at her hamstring attachment. Walking distance approximatley 1/4 mile with pain increasing . Feels like the fascia is knotted in the medial gluteal region. When she came out of surgery the whole side of her left pubic bone was tender. Pain rated between a 5 ad a 6. Limited with activities that include bending and picking things up off the floor. Treatment Goals Patient/Caregiver Goals Goals include decreasing pain and improving mobility PT-OP-F Manual Assessment Start: 12/26/18 14:49 Freq: Status: Active Protocol: Document 12/20/18 09:45 [facility] (Rec: 12/26/18 15:04 [facility] [email or web address]) Manual Assessments Soft Tissue Assessment Soft Tissue Mobility Assessment myofascial tightness across the left greater than right lumbar paraspinals and gluteal region including the piriformis and obturator internus, hamstring proximal attachment on the left and the quadratus lumborum Joint Mobility Assessment Joint Mobility Assessment + ASLR test for SI instability Other Manual Assessments Other Manual Assessments + test for pudendal nerve irritation just medial to the ischial tuberosity on the left PT-OP-J Posture/Palpation/Skin Start: 12/26/18 14:49 Freq: Status: Active Protocol: Document 12/20/18 09:45 [facility] (Rec: 12/26/18 15:04 [facility] [email or web address]) Posture Evaluation Position Standing L-Spine Posture Increased Lordosis Pelvis Posture Posterior Tilted Palpation Assessment Location Two Palpation Location lumbar paraspinals Palpation Findings Soft Tissue Tightness Spasm Muscle Guarding One Palpation Location left gluteals, piriformis, obturator internus Palpation Findings Soft Tissue Tightness Spasm Muscle Guarding Tenderness PT-OP-K Range of Motion Start: 12/26/18 14:49 Freq: Status: Active Protocol: Document 12/20/18 09:45 [facility] (Rec: 12/26/18 15:04 [facility] [email or web address]) Lumbar Spine Range of Motion Lumbar Spine Active Flexion 40 Rotation Left 20 Rotation Right 20 Lateral Flexion Left 10 Lateral Flexion Right 10 ROM Limitations Soft Tissue Tightness Muscle Tone Pain Comments very limited with lumbar ROM, sidebend is the most difficult for Joya to perform Hip Goniometric Range of Motion Hip Right Hip ROM WFL Yes Left Hip ROM WFL No Testing Position Supine Flexion w/Knee Flexed 90 Straight Leg Raise 60 Hip ROM Limitations Comments Joya feels pain when she is flexing her left hip and bringing her knee to her chest she notes she feels increased pain with this PT-OP-M Strength Start: 12/26/18 14:49 Freq: Status: Active Protocol: Document 12/20/18 09:45 [facility] (Rec: 12/26/18 15:04 [facility] [email or web address]) Trunk Strength Trunk Manual Muscle Testing Testing Position Supine Flexion 3 Fair Core Stabilization poor core activation and TA recruitment, difficulty recruiting the transverse abdominals without the upper abdominal wall. PT-OP-Q Treatments Start: 12/26/18 14:49 Freq: Status: Active Protocol: Document 12/20/18 09:45 [facility] (Rec: 12/26/18 15:04 [facility] [email or web address]) Manual Therapy Treatment Soft Tissue Mobilization 1 Body Location left gluteals and low back Mobilization Type Myofascial Release Intensity/Depth Superficial Body Position Prone Comments Trial of MFR over the piriformis, lumbar paraspinals and obturator internus PT-OP-T Assessment and Plan Start: 12/26/18 14:49 Freq: Status: Active Protocol: Document 12/20/18 09:45 [facility] (Rec: 12/26/18 15:21 [facility] [email or web address]) Physical Therapy Assessment Rehab Potential Rehabilitation Potential Good Evaluation Complexity Number of Personal Factors/Comorbidities 0 Number of Body Systems Impaired 1-2 Clinical Presentation at Evaluation Stable Impairments Impairments Activity Tolerance Pain Posture ROM Soft Tissue Mobility Strength Goals Four Impairment Decreased left hip ROM into flexion due to pain Short Term Goal (STG) Joya is able to lay in supine and flex her left hip to her chest without a increase in pain at the ischial tuberosity or hamstring region Three Impairment pain prevents Joya from standing greater than 1/2 hour Call Center Consultant Goal (LTG) Joya is able to stand for 1 hour without a increase in pain symptoms LTG Duration 8 weeks Two Impairment pain prevents sitting for greater than 1.5 hours Call Center Consultant Goal (LTG) Joya is able to drive as far as [place] to spend the day there and drive back again later int he day without a increase in her pain symptoms LTG Duration 8 weeks One Impairment Pain rated 5/10 in the left low back and down the posterior left leg Call Center Consultant Goal (LTG) Joya is able to increase her tolerance for activity and pain levels have decreased to 3-4/10 LTG Duration 8 weeks Assessment Summary Assessment Joya presents to Physical therapy with left sided low back pain and sciatic symptoms . She underwent Surgery in 2012 for a L5-S1 fusion. Symptoms included difficulty sitting and lowback was really painful. She reports having Junivinille spondylolethesis. She reports that since surgery she is now able to sit but she cant sit as long as driving to [place] and back in the same day Driving that far increases pain and compression and sets her back too far. Feels pain at the left hamstring attachment. She has been told she has micro tearing at her hamstring attachment. Walking distance approximatley 1/4 mile with pain increasing . She reports she feels like the fascia is knotted in the medial aspect of her sitting bone and in her left low back and pelvis. With examination she does have a lot of myofascial restrictions on her left side in the low back and pelvis region. She is also very tight in the region of the pundendal nerve which may be why hip flexion is so irritating to her. Treatment will focus on decreasing compression to the lumbar spine by working with myofascial release and progressing to stabilization. Physical Therapy Plan Frequency and Duration Frequency of Treatment 2x/Week Duration of Treatment 8 weeks Plan of Care Start Date 12/20/18 Plan of Care End Date 02/14/19 Therapeutic Interventions Therapeutic Interventions Home Exercise Program Manual Therapy Neuromuscular Re-education Patient/Caregiver Education Self-Care/Home Management Soft Tissue Mobilization Therapeutic Exercises
--- NOTE | 2018-12-26 15:30 | PT.OPPOC ---
Current Diagnoses Sciatica, unspecified side (12/20/18) Low back pain (12/20/18) Provider Visit Care Team Role Provider Type JESUS MANUEL Kumar Primary Care Provider Non-Staff Specialty: Medical Address: [address] [place] [address], [id number] Email: Kerri Cárdenas MD Attending Provider Non-Staff Specialty: Medical Address: [address] [place] [address], [id number] Email: Plan Of Care PT-OP-T Assessment and Plan Start: 12/26/18 14:49 Freq: Status: Active Protocol: Document 12/20/18 09:45 [facility] (Rec: 12/26/18 15:21 [facility] [email or web address]) Physical Therapy Assessment Rehab Potential Rehabilitation Potential Good Evaluation Complexity Number of Personal Factors/Comorbidities 0 Number of Body Systems Impaired 1-2 Clinical Presentation at Evaluation Stable Impairments Impairments Activity Tolerance Pain Posture ROM Soft Tissue Mobility Strength Goals Four Impairment Decreased left hip ROM into flexion due to pain Short Term Goal (STG) Joya is able to lay in supine and flex her left hip to her chest without a increase in pain at the ischial tuberosity or hamstring region Three Impairment pain prevents Joya from standing greater than 1/2 hour Carpenter Supervisor Goal (LTG) Joya is able to stand for 1 hour without a increase in pain symptoms LTG Duration 8 weeks Two Impairment pain prevents sitting for greater than 1.5 hours Carpenter Supervisor Goal (LTG) Joya is able to drive as far as [place] to spend the day there and drive back again later int he day without a increase in her pain symptoms LTG Duration 8 weeks One Impairment Pain rated 5/10 in the left low back and down the posterior left leg Carpenter Supervisor Goal (LTG) Joya is able to increase her tolerance for activity and pain levels have decreased to 3-4/10 LTG Duration 8 weeks Assessment Summary Assessment Joya presents to Physical therapy with left sided low back pain and sciatic symptoms . She underwent Surgery in 2012 for a L5-S1 fusion. Symptoms included difficulty sitting and low back was really painful. She reports having Junivinille spondylolethesis. She reports that since surgery she is now able to sit but she cant sit as long as driving to [place] and back in the same day Driving that far increases pain and compression and sets her back too far. Feels pain at the left hamstring attachment. She has been told she has micro tearing at her hamstring attachment. Walking distance approximatley 1/4 mile with pain increasing . She reports she feels like the fascia is knotted in the medial aspect of her sitting bone and in her left low back and pelvis. With examination she does have a lot of myofascial restrictions on her left side in the low back and pelvis region. She is also very tight in the region of the pundendal nerve which may be why hip flexion is so irritating to her. Treatment will focus on decreasing compression to the lumbar spine by working with myofascial release and progressing to stabilization. Physical Therapy Plan Frequency and Duration Frequency of Treatment 2x/Week Duration of Treatment 8 weeks Plan of Care Start Date 12/20/18 Plan of Care End Date 02/14/19 Therapeutic Interventions Therapeutic Interventions Home Exercise Program Manual Therapy Neuromuscular Re-education Patient/Caregiver Education Self-Care/Home Management Soft Tissue Mobilization Therapeutic Exercises Plan of Care Dates Plan of Care Start Date 12/20/18 Plan of Care End Date 02/14/19 Please Sign and Return: I have reviewed this Plan of Care and certify that the skilled therapy services above are required to meet the patient?s needs. Physician Signature Date Printed Name and Credentials Clinical Instructor Signature Printed Name and Credentials
--- NOTE | 2019-01-29 14:18 | PT.OTN ---
Current Diagnoses Sciatica, unspecified side (01/29/19) Low back pain (01/29/19) Physical Therapy Treatment Note PT-OP-A Visit Information Start: 12/20/18 09:48 Freq: Status: Active Protocol: Document 01/29/19 14:12 [facility] (Rec: 01/29/19 14:18 [facility] [email or web address]) Out-Patient Physical Therapy Visit Information Visit Information Visit Type Treatment Note Visit Start Time 09:45 Visit Stop Time 10:30 Total Visit Minutes 45 Visit Number 2 Number of HADOOP APPLICATION DEVELOPER Visits 0 PT-OP-B Current Condition Start: 12/20/18 09:48 Freq: Status: Active Protocol: Document 12/20/18 09:45 [facility] (Rec: 12/20/18 10:01 [facility] [id number]) Current Condition History of Current Condition Onset Date 2012 SURGERY History of Current Condition SURGERY IN 2012 L5 SI fusion. Symptoms included difficulty sitting and lowback was really painful. Junivinille spondylolethesis. Now able to sit but she cant sit as long as driving to [place] and back in the same day Driving that far increases pain and compression and sets her back too far. Feels pain at the left hamstring attachment. She has been told she has micro tearing at her hamstring attachment. Walking distance approximatley 1/4 mile with pain increasing . Feels like the fascia is knotted in the medial gluteal region. When she came out of surgery the whole side of her left pubic bone was tender. Pain rated between a 5 ad a 6. Limited with activities that include bending and picking things up off the floor. Treatment Goals Patient/Caregiver Goals Goals include decreasing pain and improving mobility PT-OP-C Subjective Start: 12/26/18 14:49 Freq: Status: Active Protocol: Document 01/29/19 14:12 [facility] (Rec: 01/29/19 14:18 [facility] [email or web address]) OP-PT Subjective Patient Comments Patient Comments Marilynn reports she has been able to do the quadraped sidebending exercises and stretches without any pain and she tolerated last visit well . PT-OP-F Manual Assessment Start: 12/26/18 14:49 Freq: Status: Active Protocol: Document 12/20/18 09:45 [facility] (Rec: 12/26/18 15:04 [facility] [email or web address]) Manual Assessments Soft Tissue Assessment Soft Tissue Mobility Assessment myofascial tightness across the left greater than right lumbar paraspinals and gluteal region including the piriformis and obturator internus, hamstring proximal attachment on the left and the quadratus lumborum Joint Mobility Assessment Joint Mobility Assessment + ASLR test for SI instability Other Manual Assessments Other Manual Assessments + test for pudendal nerve irritation just medial to the ischial tuberosity on the left PT-OP-J Posture/Palpation/Skin Start: 12/26/18 14:49 Freq: Status: Active Protocol: Document 12/20/18 09:45 [facility] (Rec: 12/26/18 15:04 [facility] [email or web address]) Posture Evaluation Position Standing L-Spine Posture Increased Lordosis Pelvis Posture Posterior Tilted Palpation Assessment Location Two Palpation Location lumbar paraspinals Palpation Findings Soft Tissue Tightness Spasm Muscle Guarding One Palpation Location left gluteals, piriformis, obturator internus Palpation Findings Soft Tissue Tightness Spasm Muscle Guarding Tenderness PT-OP-K Range of Motion Start: 12/26/18 14:49 Freq: Status: Active Protocol: Document 12/20/18 09:45 [facility] (Rec: 12/26/18 15:04 [facility] [email or web address]) Lumbar Spine Range of Motion Lumbar Spine Active Flexion 40 Rotation Left 20 Rotation Right 20 Lateral Flexion Left 10 Lateral Flexion Right 10 ROM Limitations Soft Tissue Tightness Muscle Tone Pain Comments very limited with lumbar ROM, sidebend is the most difficult for Joya to perform Hip Goniometric Range of Motion Hip Right Hip ROM WFL Yes Left Hip ROM WFL No Testing Position Supine Flexion w/Knee Flexed 90 Straight Leg Raise 60 Hip ROM Limitations Comments Joya feels pain when she is flexing her left hip and bringing her knee to her chest she notes she feels increased pain with this PT-OP-M Strength Start: 12/26/18 14:49 Freq: Status: Active Protocol: Document 12/20/18 09:45 [facility] (Rec: 12/26/18 15:04 [facility] [email or web address]) Trunk Strength Trunk Manual Muscle Testing Testing Position Supine Flexion 3 Fair Core Stabilization poor core activation and TA recruitment, difficulty recruiting the transverse abdominals without the upper abdominal wall. PT-OP-Q Treatments Start: 12/26/18 14:49 Freq: Status: Active Protocol: Document 01/29/19 14:12 [facility] (Rec: 01/29/19 14:18 [facility] [email or web address]) Manual Therapy Treatment Soft Tissue Mobilization 1 Body Location left gluteals and low back Mobilization Type Myofascial Release Intensity/Depth Superficial Body Position Prone Comments Trial of MFR over the piriformis, lumbar paraspinals and obturator internus PT-OP-T Assessment and Plan Start: 12/26/18 14:49 Freq: Status: Active Protocol: Document 01/29/19 14:12 [facility] (Rec: 01/29/19 14:18 [facility] [email or web address]) Physical Therapy Assessment Assessment Summary Assessment Decreased tension in the left low back parspinals today and Marilynn has found some movements to do that do not bother her so she is doing better. She has not yet returned to swimming using her legs as this had flared her. I also held off still on hamstring stretching Physical Therapy Plan Frequency and Duration Frequency of Treatment 2x/Week Duration of Treatment 8 weeks Plan of Care Start Date 12/20/18 Plan of Care End Date 02/14/19 Therapeutic Interventions Therapeutic Interventions Home Exercise Program Manual Therapy Neuromuscular Re-education Patient/Caregiver Education Self-Care/Home Management Soft Tissue Mobilization Therapeutic Exercises Next Visit Focus/Plan Next Note Type Treatment Note Next Visit Plan begin to work in sidelying into the obturator internus and add in nerve gliding for the pundendal nerve.
--- NOTE | 2019-02-11 08:24 | PT.OTN ---
Current Diagnoses Sciatica, unspecified side (02/05/19) Low back pain (02/05/19) Physical Therapy Treatment Note PT-OP-A Visit Information Start: 12/20/18 09:48 Freq: Status: Active Protocol: Document 02/05/19 11:15 [facility] (Rec: 02/11/19 08:24 [facility] [email or web address]) Out-Patient Physical Therapy Visit Information Visit Information Visit Type Treatment Note Visit Start Time 11:15 Visit Stop Time 12:00 Total Visit Minutes 45 Visit Number 4 Number of SPEECH SCIENTIST Visits 0 Evaluation Information Evaluation Date 12/20/18 PT-OP-B Current Condition Start: 12/20/18 09:48 Freq: Status: Active Protocol: Document 12/20/18 09:45 [facility] (Rec: 12/20/18 10:01 [facility] [id number]) Current Condition History of Current Condition Onset Date 2012 SURGERY History of Current Condition SURGERY IN 2012 L5 SI fusion. Symptoms included difficulty sitting and lowback was really painful. Junivinille spondylolethesis. Now able to sit but she cant sit as long as driving to [place] and back in the same day Driving that far increases pain and compression and sets her back too far. Feels pain at the left hamstring attachment. She has been told she has micro tearing at her hamstring attachment. Walking distance approximatley 1/4 mile with pain increasing . Feels like the fascia is knotted in the medial gluteal region. When she came out of surgery the whole side of her left pubic bone was tender. Pain rated between a 5 ad a 6. Limited with activities that include bending and picking things up off the floor. Treatment Goals Patient/Caregiver Goals Goals include decreasing pain and improving mobility PT-OP-C Subjective Start: 12/26/18 14:49 Freq: Status: Active Protocol: Document 02/05/19 11:15 [facility] (Rec: 02/11/19 08:20 [facility] [email or web address]) OP-PT Subjective Patient Comments Patient Comments Marilynn reports she was flared up after last visit. NErve irritation. She is seeking out cortisone injections PT-OP-F Manual Assessment Start: 12/26/18 14:49 Freq: Status: Active Protocol: Document 12/20/18 09:45 [facility] (Rec: 12/26/18 15:04 [facility] [email or web address]) Manual Assessments Soft Tissue Assessment Soft Tissue Mobility Assessment myofascial tightness across the left greater than right lumbar paraspinals and gluteal region including the piriformis and obturator internus, hamstring proximal attachment on the left and the quadratus lumborum Joint Mobility Assessment Joint Mobility Assessment + ASLR test for SI instability Other Manual Assessments Other Manual Assessments + test for pudendal nerve irritation just medial to the ischial tuberosity on the left PT-OP-J Posture/Palpation/Skin Start: 12/26/18 14:49 Freq: Status: Active Protocol: Document 12/20/18 09:45 [facility] (Rec: 12/26/18 15:04 [facility] [email or web address]) Posture Evaluation Position Standing L-Spine Posture Increased Lordosis Pelvis Posture Posterior Tilted Palpation Assessment Location Two Palpation Location lumbar paraspinals Palpation Findings Soft Tissue Tightness,Spasm, Muscle Guarding One Palpation Location left gluteals, piriformis, obturator internus Palpation Findings Soft Tissue Tightness,Spasm, Muscle Guarding,Tenderness PT-OP-K Range of Motion Start: 12/26/18 14:49 Freq: Status: Active Protocol: Document 12/20/18 09:45 [facility] (Rec: 12/26/18 15:04 [facility] [email or web address]) Lumbar Spine Range of Motion Lumbar Spine Active Flexion 40 Rotation Left 20 Rotation Right 20 Lateral Flexion Left 10 Lateral Flexion Right 10 ROM Limitations Soft Tissue Tightness,Muscle Tone,Pain Comments very limited with lumbar ROM, sidebend is the most difficult for Joya to perform Hip Goniometric Range of Motion Hip Right Hip ROM WFL Yes Left Hip ROM WFL No Testing Position Supine Flexion w/Knee Flexed 90 Straight Leg Raise 60 Hip ROM Limitations Comments Joya feels pain when she is flexing her left hip and bringing her knee to her chest she notes she feels increased pain with this PT-OP-M Strength Start: 12/26/18 14:49 Freq: Status: Active Protocol: Document 12/20/18 09:45 [facility] (Rec: 12/26/18 15:04 [facility] [email or web address]) Trunk Strength Trunk Manual Muscle Testing Testing Position Supine Flexion 3 Fair Core Stabilization poor core activation and TA recruitment, difficulty recruiting the transverse abdominals without the upper abdominal wall. PT-OP-Q Treatments Start: 12/26/18 14:49 Freq: Status: Active Protocol: Document 02/05/19 11:15 [facility] (Rec: 02/11/19 08:20 [facility] [email or web address]) Manual Therapy Treatment Soft Tissue Mobilization 1 Body Location left gluteal Mobilization Type Myofascial Release Intensity/Depth Superficial Body Position Prone Comments kept MFR to the gluteals as working on the low back seemed to flare her PT-OP-R Modalities Start: 02/11/19 08:20 Freq: Status: Active Protocol: Document 02/06/19 13:00 [facility] (Rec: 02/11/19 08:21 [facility] [email or web address]) Ultrasound Therapy Treatment left gluteal Treatment Duration (minutes) 8 Patient Position Prone Coupling Medium Ultrasound Gel Applicator Size (cm2) 5 Mode Setting Continuous Duty Cycle 100% Intensity Setting (w/cm2) 1.5 Comments good tolerance prior to MFR PT-OP-T Assessment and Plan Start: 12/26/18 14:49 Freq: Status: Active Protocol: Document 02/05/19 11:15 [facility] (Rec: 02/11/19 08:20 [facility] [email or web address]) Physical Therapy Assessment Assessment Summary Assessment pt to get a cortisone injection and will follow up with PT after this Physical Therapy Plan Next Visit Focus/Plan Next Note Type Treatment Note Next Visit Plan reassess pain levels following cortisone injection
--- NOTE | 2019-04-23 08:17 | PT.OPDS ---
Current Diagnoses Sciatica, unspecified side (02/05/19) Low back pain (02/05/19) Visit Care Team Role Provider Type JESUS MANUEL Kumar Primary Care Provider Non-Staff Specialty: Medical Address: [address] [place] [address], [id number] Email: Kerri Cárdenas MD Attending Provider Non-Staff Specialty: Medical Address: [address] [place] [address], [id number] Email: Visit Number Visit Number 4 Discharge Summary PT-OP-B Current Condition Start: 12/20/18 09:48 Freq: Status: Active Protocol: Document 12/20/18 09:45 [facility] (Rec: 12/20/18 10:01 [facility] [id number]) Current Condition History of Current Condition Onset Date 2012 SURGERY History of Current Condition SURGERY IN 2012 L5 SI fusion. Symptoms included difficulty sitting and lowback was really painful. [place] spondylolethesis. Now able to sit but she cant sit as long as driving to [place] and back in the same day Driving that far increases pain and compression and sets her back too far. Feels pain at the left hamstring attachment. She has been told she has micro tearing at her hamstring attachment. Walking distance approximatley 1/4 mile with pain increasing . Feels like the fascia is knotted in the medial gluteal region. When she came out of surgery the whole side of her left pubic bone was tender. Pain rated between a 5 ad a 6. Limited with activities that include bending and picking things up off the floor. Treatment Goals Patient/Caregiver Goals Goals include decreasing pain and improving mobility PT-OP-C Subjective Start: 12/26/18 14:49 Freq: Status: Active Protocol: Document 02/05/19 11:15 [facility] (Rec: 02/11/19 08:20 [facility] [email or web address]) OP-PT Subjective Patient Comments Patient Comments Marilynn reports she was flared up after last visit. NErve irritation. She is seeking out cortisone injections PT-OP-F Manual Assessment Start: 12/26/18 14:49 Freq: Status: Active Protocol: Document 12/20/18 09:45 [facility] (Rec: 12/26/18 15:04 [facility] [id number]) Manual Assessments Soft Tissue Assessment Soft Tissue Mobility Assessment myofascial tightness across the left greater than right lumbar paraspinals and gluteal region including the piriformis and obturator internus, hamstring proximal attachment on the left and the quadratus lumborum Joint Mobility Assessment Joint Mobility Assessment + ASLR test for SI instability Other Manual Assessments Other Manual Assessments + test for pudendal nerve irritation just medial to the ischial tuberosity on the left PT-OP-J Posture/Palpation/Skin Start: 12/26/18 14:49 Freq: Status: Active Protocol: Document 12/20/18 09:45 [facility] (Rec: 12/26/18 15:04 [facility] [email or web address]) Posture Evaluation Position Standing L-Spine Posture Increased Lordosis Pelvis Posture Posterior Tilted Palpation Assessment Location Two Palpation Location lumbar paraspinals Palpation Findings Soft Tissue Tightness,Spasm, Muscle Guarding One Palpation Location left gluteals, piriformis, obturator internus Palpation Findings Soft Tissue Tightness,Spasm, Muscle Guarding,Tenderness PT-OP-K Range of Motion Start: 12/26/18 14:49 Freq: Status: Active Protocol: Document 12/20/18 09:45 [facility] (Rec: 12/26/18 15:04 [facility] [id number]) Lumbar Spine Range of Motion Lumbar Spine Active Flexion 40 Rotation Left 20 Rotation Right 20 Lateral Flexion Left 10 Lateral Flexion Right 10 ROM Limitations Soft Tissue Tightness,Muscle Tone,Pain Comments very limited with lumbar ROM, sidebend is the most difficult for Joya to perform Hip Goniometric Range of Motion Hip Right Hip ROM WFL Yes Left Hip ROM WFL No Testing Position Supine Flexion w/Knee Flexed 90 Straight Leg Raise 60 Hip ROM Limitations Comments Joya feels pain when she is flexing her left hip and bringing her knee to her chest she notes she feels increased pain with this PT-OP-M Strength Start: 12/26/18 14:49 Freq: Status: Active Protocol: Document 12/20/18 09:45 [facility] (Rec: 12/26/18 15:04 [facility] [email or web address]) Trunk Strength Trunk Manual Muscle Testing Testing Position Supine Flexion 3 Fair Core Stabilization poor core activation and TA recruitment, difficulty recruiting the transverse abdominals without the upper abdominal wall. PT-OP-T Assessment and Plan Start: 12/26/18 14:49 Freq: Status: Active Protocol: Document 04/23/19 08:15 [facility] (Rec: 04/23/19 08:17 [facility] [email or web address]) Physical Therapy Plan Discharge Physical Therapy Discharge Reasons Patient Request Discharge Comments Joya needed to cx her remaining PT visits as she was heading out of town for a few months. She was also in the process of seeking further ortho consult for her back. She will be discharged at this time
== END 2019-04-26 12:32 ==
LOC: PHYS 11:15
PROVIDERS: PCP Registered Nurse; Visit Provider Anesthesiology Pain Medicine
DX: M54.30 Sciatica, unspecified side (principal); M54.5 Low back pain
CPT/HCPCS: 97035; 97140; 97161

== ENCOUNTER → 2020-11-13 14:41 | Outpatient (CLI) | payer OTHER, SELFPAY ==
[2020-11-13 14:56] LABS: Bacteria Urine None Seen
[2020-11-13 18:01] LABS: Appearance Urine UA CLEAR; Bilirubin Urine UA NEGATIVE (NEGATIVE); Color Urine UA YELLOW; Glucose Urine UA NEGATIVE (Negative); Ketones Urine UA NEGATIVE (NEGATIVE); Leukocyte Esterase Urine UA NEGATIVE (NEGATIVE); Nitrite Urine UA NEGATIVE (Negative); Occult Blood Urine UA NEGATIVE (Negative); Protein Urine UA NEGATIVE (Negative); Specific Gravity Urine UA 1.025 (1.000-1.035); Urobilinogen Urine UA 0.2 E.U./dL (0.2)
[2020-11-13 18:16] LABS: Culture Indicated Urine Cult Not Indicated; RBC Urine 0-1/HPF (0-5/HPF); Squamous Epithelial Cell Urine 0-1 /HPF (0-5/HPF); WBC Urine 0-1/HPF (0-5/HPF)
== END ==
PROVIDERS: Referring Provider Family Medicine; Visit Provider Family Medicine
DX: R35.0 Frequency of micturition (principal)
CPT/HCPCS: 36415; 81001

== ENCOUNTER → 2020-11-27 11:31 | Outpatient (CLI) | payer OTHER, SELFPAY ==
[2020-11-27 12:49] LABS: Alanine Aminotransferase 30 IU/L (<35); Albumin 4.2 g/dL (3.5-5.0); Albumin Globulin Ratio 1.6 (1.0-2.8); Alkaline Phosphatase 109 U/L (38-126); Aspartate Aminotransferase 26 IU/L (14-36); BUN Creatinine Ratio 20.8 (6-22); Bilirubin Total 0.5 mg/dL (0.2-1.3); Bilirubin Unconjugated 0.3 mg/dL (0.0-1.1); Blood Urea Nitrogen 15 mg/dL (7-17); Carbon Dioxide 28 mmol/L (22-32); Chloride 104 mmol/L (98-107); Estimated Glomerular Filt Rate > 60.0 mL/min (>60); Gamma Glutamyl Transpeptidase 26 U/L (12-43); Globulin 2.7 g/dL (1.7-4.1); Glucose 99 mg/dL (80-110); HEMOLYSIS < 15 (0-50); Phosphorous 3.7 mg/dL (2.8-4.1); Potassium 4.5 mmol/L (3.4-5.1); Sodium 138 mmol/L (137-145); Total Protein 6.9 g/dL (6.3-8.2)
[2020-11-27 13:24] LABS: Free T3, Triiodothyronine Free 3.97 pg/mL (2.77-5.27); Free T4, Direct Thyroxine 0.99 ng/dL (0.78-2.19)
[2020-11-27 13:36] LABS: Vitamin B12 > 1000 pg/mL (239-931)
[2020-11-27 13:37] LABS: Thyroid Stimulating Hormone 1.98 uIU/mL (0.47-4.68)
== END ==
PROVIDERS: Referring Provider Acupuncturist; Visit Provider Acupuncturist
DX: R06.2 Wheezing (principal); R42 Dizziness and giddiness; R53.82 Chronic fatigue, unspecified; R20.2 Paresthesia of skin; R27.0 Ataxia, unspecified; R11.0 Nausea
CPT/HCPCS: 36415; 80069; 80076; 82607; 82977; 84439; 84443; 84481

== ENCOUNTER → 2020-12-01 07:20 | Outpatient (CLI) | payer OTHER, SELFPAY ==
[2020-12-01 09:35] LABS: Alanine Aminotransferase 21 IU/L (<35); Alkaline Phosphatase 95 U/L (38-126); Aspartate Aminotransferase 19 IU/L (14-36)
[2020-12-02 09:49] LABS: Complement C3 148 mg/dL (82-167); EBV EBNA Antibody IgG 49.4 U/mL (0.0-17.9); EBV Virus IgM Ab < 36.0 U/mL (0.0-35.9); Insulin Level Total 18.1 uIU/mL (2.6-24.9)
[2020-12-02 11:41] LABS: IgG Subclass 1 275 mg/dL (248-810); IgG Subclass 2 255 mg/dL (130-555); IgG Subclass 3 7 mg/dL (15-102); IgG Subclass 4 10 mg/dL (2-96); IgG Total 644 mg/dL (586-1602)
[2020-12-03 14:50] LABS: B. henselae IgG Negative titer (Neg:<1:320); B. henselae IgM Negative titer (Neg:<1:100); B. quintana IgG Negative titer (Neg:<1:320); B. quintana IgM Negative titer (Neg:<1:100); Babesia microti IgG <1:10 (Neg:<1:10); Babesia microti IgM <1:10 (Neg:<1:10)
[2020-12-04 13:36] LABS: Vascular Endothelial Growth Fa 39 pg/mL (0-115)
[2020-12-07 12:07] LABS: HGE IgG Titer Negative (Neg:<1:64); HGE IgM Titer Negative (Neg:<1:20)
[2020-12-09 11:18] LABS: Melanocyte Stim Hormone <8 pg/mL (0-40)
== END ==
PROVIDERS: Referring Provider Acupuncturist; Visit Provider Acupuncturist
DX: R06.2 Wheezing (principal); R42 Dizziness and giddiness; R53.82 Chronic fatigue, unspecified; R20.2 Paresthesia of skin; R27.0 Ataxia, unspecified; R11.0 Nausea
CPT/HCPCS: 36415; 82784; 82787; 83519; 83520; 83525; 84075; 84450; 84460; 84586; 86160; 86611; 86664; 86665; 86666; 86753

== ENCOUNTER → 2020-12-03 08:46 | Outpatient (CLI) | payer OTHER, SELFPAY ==
[2020-12-03 11:10] LABS: HEMOLYSIS < 15 (0-50)
[2020-12-03 11:33] LABS: Free T3, Triiodothyronine Free 3.02 pg/mL (2.77-5.27)
[2020-12-03 12:04] LABS: Vitamin B12 > 1000 pg/mL (239-931)
[2020-12-03 12:08] LABS: Albumin 4.5 g/dL (3.5-5.0); BUN Creatinine Ratio 16.7 (6-22); Blood Urea Nitrogen 13 mg/dL (7-17); Calcium 10.4 mg/dL (8.4-10.2); Carbon Dioxide 25 mmol/L (22-32); Chloride 109 mmol/L (98-107); Estimated Glomerular Filt Rate > 60.0 mL/min (>60); Gamma Glutamyl Transpeptidase 28 U/L (12-43); Glucose 95 mg/dL (80-110); Phosphorous 4.1 mg/dL (2.8-4.1); Potassium 5.1 mmol/L (3.4-5.1); Sodium 143 mmol/L (137-145)
[2020-12-03 12:23] LABS: Alanine Aminotransferase 19 IU/L (<35); Albumin Globulin Ratio 1.9 (1.0-2.8); Alkaline Phosphatase 103 U/L (38-126); Aspartate Aminotransferase 21 IU/L (14-36); Globulin 2.4 g/dL (1.7-4.1); Total Protein 6.9 g/dL (6.3-8.2)
[2020-12-03 12:24] LABS: Bilirubin Total 0.9 mg/dL (0.2-1.3)
[2020-12-03 12:43] LABS: Bilirubin Unconjugated 0.6 mg/dL (0.0-1.1)
[2020-12-03 17:16] LABS: Free T4, Direct Thyroxine 1.11 ng/dL (0.78-2.19)
[2020-12-06 06:08] LABS: Triiodothyronine T3 Reverse 18.9 ng/dL (9.2-24.1)
[2020-12-08 08:13] LABS: Matrix metalloprot 9 779 ng/mL (.)
== END ==
PROVIDERS: Referring Provider Acupuncturist; Visit Provider Acupuncturist
DX: R06.2 Wheezing (principal); R42 Dizziness and giddiness; R53.82 Chronic fatigue, unspecified; R20.2 Paresthesia of skin; R27.0 Ataxia, unspecified; R11.0 Nausea
CPT/HCPCS: 36415; 80069; 80076; 82607; 82977; 83516; 83520; 84439; 84443; 84481; 84482; 86355; 86357; 86359; 86360; 86618; 87798

== ENCOUNTER → 2021-02-12 16:50 | Outpatient (CLI) | payer OTHER, SELFPAY ==
[2021-02-12 17:43] LABS: Magnesium 2.2 mg/dL (1.6-2.3)
[2021-02-12 17:55] LABS: HEMOLYSIS < 15 (0-50); Iron 66 ug/dL (37-170)
[2021-02-12 18:06] LABS: Percent Iron Saturation 21 % (15-50); Total Iron Binding Capacity 314 ug/dL (265-497); Transferrin 262 mg/dL (206-381)
[2021-02-12 18:19] LABS: Ferritin 32 ng/mL (11-264)
[2021-02-12 18:49] LABS: Folate 7.6 ng/mL (2.76-20.0); Vitamin B12 > 1000 pg/mL (239-931)
[2021-02-17 00:08] LABS: Methylmalonic Acid,Serum 187 nmol/L (0-378)
[2021-02-19 08:13] LABS: Melanocyte Stim Hormone <8 pg/mL (0-40)
== END ==
PROVIDERS: Referring Provider Acupuncturist; Visit Provider Acupuncturist
DX: R53.82 Chronic fatigue, unspecified (principal); D89.49 Other mast cell activation disorder; M79.10 Myalgia, unspecified site; Z77.120 Contact with and (suspected) exposure to mold (toxic); R11.0 Nausea; K59.00 Constipation, unspecified
CPT/HCPCS: 36415; 82607; 82728; 82746; 83036; 83516; 83519; 83520; 83540; 83550; 83735; 83921; 84586

== ENCOUNTER → 2021-02-16 06:54 | Outpatient (CLI) | payer OTHER, SELFPAY ==
[2021-02-16 08:23] LABS: Alanine Aminotransferase 25 IU/L (<35); Albumin 4.3 g/dL (3.5-5.0); Albumin Globulin Ratio 1.8 (1.0-2.8); Alkaline Phosphatase 99 U/L (38-126); Amylase 127 U/L (30-110); Aspartate Aminotransferase 26 IU/L (14-36); BUN Creatinine Ratio 15.5 (6-22); Bilirubin Total 0.3 mg/dL (0.2-1.3); Blood Urea Nitrogen 11 mg/dL (7-17); Calcium 9.3 mg/dL (8.4-10.2); Carbon Dioxide 27 mmol/L (22-32); Chloride 107 mmol/L (98-107); Estimated Glomerular Filt Rate > 60.0 mL/min (>60); Globulin 2.4 g/dL (1.7-4.1); Glucose 100 mg/dL (80-110); HEMOLYSIS < 15 (0-50); Lipase 183 U/L (23-300); Potassium 4.3 mmol/L (3.4-5.1); Sodium 140 mmol/L (137-145); Total Protein 6.7 g/dL (6.3-8.2)
[2021-02-17 06:09] LABS: Parathyroid Hormone Int 51 pg/mL (15-65)
== END ==
PROVIDERS: PCP Acupuncturist; Referring Provider Acupuncturist; Visit Provider Acupuncturist
DX: E83.52 Hypercalcemia (principal); R11.0 Nausea; K59.00 Constipation, unspecified; R53.82 Chronic fatigue, unspecified; Z77.120 Contact with and (suspected) exposure to mold (toxic); M79.10 Myalgia, unspecified site; D89.49 Other mast cell activation disorder
CPT/HCPCS: 36415; 80053; 82150; 83690; 83970

== ENCOUNTER → 2021-02-18 07:43 | Outpatient (CLI) | payer OTHER, SELFPAY ==
--- NOTE | 2021-02-18 07:44 | DI.US.S_ITS ---
PROCEDURE: US ABDOMEN COMPLETE INDICATIONS: LEFT LOWER QUADRANT PAIN TECHNIQUE: Real-time scanning was performed of the abdominal and retroperitoneal organs, with image documentation. COMPARISON: [facility], US, ABDOMEN COMPLETE, 03/22/2016, 8:18. FINDINGS: Liver: Liver is normal in size. Increased liver parenchymal echotexture is seen. 3.1 x 3.4 x 2.7 cm anechoic structure is noted in right lobe of liver. Gallbladder: There is no gallstone. No gallbladder wall thickening or pericholecystic fluid. No sonographic Chavez sign. Biliary ducts: Intrahepatic bile ducts are non-dilated. Extrahepatic bile duct caliber measures 3.2 mm. Normal is 6-7 mm or less in diameter, or 10 mm or less post-cholecystectomy. Pancreas: Visualized portions of the pancreas are sonographically normal. Spleen: Spleen is normal in size and homogeneous in echotexture. Kidneys: Kidneys are normal in size and echotexture. Right kidney measures 10.7 cm long; left kidney measures 11.4 cm long. No hydronephrosis or nephrolithiasis. No solid masses. Aorta: Visualized aorta is normal in caliber at less than 3 cm. Iliacs: Proximal common iliac arteries are normal in caliber at less than 2.5 cm. IVC: Intrahepatic inferior vena cava is patent. Miscellaneous: No free abdominal fluid. IMPRESSION: 1. Hepatic steatosis and a 3.4 cm right hepatic lobe cyst as above. 2. Normal appearing gallbladder. No biliary ductal dilatation. 3. Rest of the exam is unremarkable. Dictated by: Andrew Tinsley M.D. on 02/18/2021 at 12:57 Approved by: Andrew Tinsley M.D. on 02/18/2021 at 12:59
== END ==
PROVIDERS: PCP Acupuncturist; Referring Provider Family Medicine; Visit Provider Family Medicine
DX: K58.9 Irritable bowel syndrome, unspecified (principal); R11.0 Nausea; R10.32 Left lower quadrant pain; K76.0 Fatty (change of) liver, not elsewhere classified; K76.89 Other specified diseases of liver
CPT/HCPCS: 76700

== ENCOUNTER → 2021-03-11 07:34 | Outpatient (CLI) | payer OTHER, SELFPAY ==
[2021-03-11 10:19] LABS: Appearance Urine UA CLEAR; Bilirubin Urine UA NEGATIVE (NEGATIVE); Color Urine UA YELLOW; Glucose Urine UA NEGATIVE (Negative); Ketones Urine UA NEGATIVE (NEGATIVE); Leukocyte Esterase Urine UA 1+ (NEGATIVE); Nitrite Urine UA NEGATIVE (Negative); Occult Blood Urine UA NEGATIVE (Negative); Protein Urine UA NEGATIVE (Negative); Urobilinogen Urine UA 0.2 E.U./dL (0.2)
[2021-03-11 10:55] LABS: Bacteria Urine Few (2-10); Culture Indicated Urine Specimen Cultured; RBC Urine None Seen (0-5/HPF); Squamous Epithelial Cell Urine 1-5 /HPF (0-5/HPF); WBC Urine 1-5/HPF (0-5/HPF)
[2021-03-11 11:43] LABS: Creatinine Urine Random 79.7 mg/dL
[2021-03-11 11:58] LABS: Microalbumin Urine Random < 0.6 mg/dL (0-1.6)
[2021-03-11 12:09] LABS: Cancer Antigen 125 13.1 U/mL (0-35)
[2021-03-12 18:48] LABS: Interpretation Negative (Negative)
[2021-03-18 03:19] LABS: Matrix metalloprot 9 606 ng/mL (.)
[2021-03-19 13:10] LABS: Trypsin 403 ng/mL (169-773)
[2021-03-23 11:13] LABS: H.pylori IgG 0.32 (0.00-0.79)
== END ==
PROVIDERS: PCP Acupuncturist; Referring Provider Acupuncturist; Visit Provider Acupuncturist
DX: R74.8 Abnormal levels of other serum enzymes (principal); R10.32 Left lower quadrant pain; B37.3 Candidiasis of vulva and vagina; Z77.120 Contact with and (suspected) exposure to mold (toxic); R14.0 Abdominal distension (gaseous); R11.0 Nausea; B95.7 Other staphylococcus as the cause of diseases classified elsewhere; R11.11 Vomiting without nausea; J32.9 Chronic sinusitis, unspecified; D89.40 Mast cell activation, unspecified; M79.18 Myalgia, other site; M25.569 Pain in unspecified knee; M54.42 Lumbago with sciatica, left side
CPT/HCPCS: 36415; 81001; 82043; 82150; 82570; 83013; 83519; 83520; 86003; 86161; 86304; 86628; 86677; 87086

== ENCOUNTER → 2021-03-12 17:52 | Outpatient (CLI) | payer OTHER, SELFPAY ==
[2021-03-12 18:35] LABS: Lactate Dehydrogenase 390 U/L (313-618)
[2021-03-14 08:30] LABS: Thyroid Peroxidase Antibodies <8 IU/mL (0-34)
[2021-03-16 14:08] LABS: ANA Screen, IFA Negative (.)
[2021-03-22 09:47] LABS: Thyroglobulin Level 22 ng/mL (.)
== END ==
PROVIDERS: PCP Acupuncturist; Referring Provider Acupuncturist; Visit Provider Acupuncturist
DX: R53.82 Chronic fatigue, unspecified (principal); M79.18 Myalgia, other site; M25.569 Pain in unspecified knee; M54.42 Lumbago with sciatica, left side; Z77.120 Contact with and (suspected) exposure to mold (toxic); R11.11 Vomiting without nausea; R74.8 Abnormal levels of other serum enzymes; J32.9 Chronic sinusitis, unspecified; D89.40 Mast cell activation, unspecified; R27.0 Ataxia, unspecified
CPT/HCPCS: 36415; 83615; 84432; 84588; 86038; 86376

== ENCOUNTER → 2021-03-18 09:12 | Outpatient (CLI) | payer OTHER, SELFPAY ==
[2021-03-18 10:42] LABS: Erythrocyte Sedimentation Rate 8 MM/HR (0-20)
[2021-03-18 10:43] LABS: High Sensitivity CRP - Cardiac 1.8 mg/L (1.0-3.0)
[2021-03-19 15:43] LABS: Cadmium, Blood None Detected ug/L (0.0-1.2); Lead, Blood < 1 ug/dL (0-4)
[2021-03-22 09:47] LABS: Saccharomyces cerevisiae IgA <20.0 Units (0.0-24.9)
[2021-03-22 12:18] LABS: Cardiolipin Ab IgA <9 APL U/mL (0-11); Cardiolipin Ab IgG <9 GPL U/mL (0-14); Cardiolipin Ab IgM <9 MPL U/mL (0-12)
[2021-03-23 11:59] LABS: N-Telopeptide 10.3 nmol BCE/L (6.2-19.0)
== END ==
PROVIDERS: PCP Acupuncturist; Referring Provider Acupuncturist; Visit Provider Acupuncturist
DX: M85.80 Other specified disorders of bone density and structure, unspecified site (principal); Z82.49 Family history of ischemic heart disease and other diseases of the circulatory system; M79.10 Myalgia, unspecified site; R19.7 Diarrhea, unspecified; R10.32 Left lower quadrant pain; R06.2 Wheezing; R20.2 Paresthesia of skin; F06.8 Other specified mental disorders due to known physiological condition
CPT/HCPCS: 36415; 82175; 82300; 82523; 83655; 83825; 85651; 86140; 86147; 86356; 86357; 86359; 86671

== ENCOUNTER → 2021-03-25 14:02 | Outpatient (CLI) | payer OTHER, SELFPAY ==
[2021-03-28 09:22] LABS: IgE Alternaria alternata <0.10 kU/L (Class 0); IgE Aspergillus fumigatus <0.10 kU/L (Class 0); IgE Aureobasidi pullulans <0.10 kU/L (Class 0); IgE Candida albicans <0.10 kU/L (Class 0); IgE Cladosporium herbarum <0.10 kU/L (Class 0); IgE Epicoccum purpur <0.10 kU/L (Class 0); IgE Fusarium proliferatum <0.10 kU/L (Class 0); IgE Mucor racemosus <0.10 kU/L (Class 0); IgE Penicillium chrysogen <0.10 kU/L (Class 0); IgE Phoma betae <0.10 kU/L (Class 0); IgE Setomelanomma rostrat <0.10 kU/L (Class 0); IgE Stemphylium herbarum <0.10 kU/L (Class 0)
== END ==
PROVIDERS: PCP Acupuncturist; Referring Provider Family Medicine; Visit Provider Family Medicine
DX: Z77.120 Contact with and (suspected) exposure to mold (toxic) (principal)
CPT/HCPCS: 36415

== ENCOUNTER → 2021-04-08 14:10 | Outpatient (CLI) | payer OTHER, SELFPAY ==
--- NOTE | 2021-04-08 14:13 | DI.RAD.S_ITS ---
PROCEDURE: XR CHEST 2V INDICATIONS: COUGH/DYSPNEA/MOLD GROWTH EXSPOSURE TECHNIQUE: 2 views of the chest were acquired. COMPARISON: [facility], CR, XR CHEST 1V, 12/04/2018, 9:36. FINDINGS: Surgical changes and devices: None. Lungs and pleura: Scarring projects over the right medial lung base. Lungs are otherwise clear. No pleural effusions or pneumothorax. Mediastinum: Mediastinal contours are normal. Heart size is normal. Bones and chest wall: No suspicious bony abnormalities. Soft tissues appear unremarkable. IMPRESSION: No acute process. Dictated by: Supriya Sierra M.D. on 04/08/2021 at 15:56 Approved by: Supriya Sierra M.D. on 04/08/2021 at 15:57
== END ==
PROVIDERS: PCP Acupuncturist; Referring Provider Acupuncturist; Visit Provider Acupuncturist
DX: R05.3 Chronic cough (principal); R06.00 Dyspnea, unspecified; Z77.120 Contact with and (suspected) exposure to mold (toxic)
CPT/HCPCS: 71046

== ENCOUNTER → 2021-04-30 15:28 | Outpatient (CLI) | payer OTHER, SELFPAY ==
[2021-05-01 07:11] LABS: Homocysteine 9.6 umol/L (0.0-17.2)
[2021-05-20 11:51] LABS: Result 8286
[2021-06-07 16:10] LABS: Matrix metalloprot 9 502 ng/mL (.)
== END ==
PROVIDERS: PCP Acupuncturist; Referring Provider Acupuncturist; Visit Provider Acupuncturist
DX: Z77.120 Contact with and (suspected) exposure to mold (toxic) (principal)
CPT/HCPCS: 36415; 83090; 83520

== ENCOUNTER → 2021-10-22 16:10 | Outpatient (CLI) | payer OTHER, SELFPAY ==
[2021-10-22 17:15] LABS: Add Manual Diff / Slide Review NO; Basophils Absolute Auto 100 /uL (0-100); Basophils Percent Auto 1.2 % (0-2); Eosinophils Absolute Auto 200 /uL (0-450); Eosinophils Percent Auto 2.6 % (2-4); Hematocrit 40.5 % (36-46); Lymphocytes Absolute Auto 1900 /uL (1100-4500); Mean Corpuscular HGB Conc 34.7 % (30-36); Mean Corpuscular Hemoglobin 31.9 PG (26-34); Mean Corpuscular Volume 92.2 fL (80-100); Monocytes Absolute Auto 400 /uL (0-900); Monocytes Percent Auto 4.8 % (3-14); Neutrophils Absolute Auto 5600 /uL (1500-7000); Neutrophils Percent Auto 68.4 % (50-75); Platelet Count 318 X10^3/uL (150-400); Red Blood Cell Count 4.39 X10^6/uL (4.0-5.2); Red Cell Distribution Width 13.3 % (11.6-14.8); White Blood Cell Count 8.2 X10^3/uL (4.5-11.0)
[2021-10-22 18:31] LABS: Alanine Aminotransferase 18 IU/L (<35); Albumin 4.5 g/dL (3.5-5.0); Alkaline Phosphatase 104 U/L (38-126); Aspartate Aminotransferase 19 IU/L (14-36); BUN Creatinine Ratio 9.6 (6-22); Bilirubin Total 0.3 mg/dL (0.2-1.3); Blood Urea Nitrogen 7 mg/dL (7-17); Calcium 9.9 mg/dL (8.4-10.2); Carbon Dioxide 25 mmol/L (22-32); Chloride 108 mmol/L (98-107); Estimated Glomerular Filt Rate > 60 mL/min (>60); Gamma Glutamyl Transpeptidase 17 U/L (12-43); Globulin 2.3 g/dL (1.7-4.1); Glucose 97 mg/dL (80-110); HEMOLYSIS < 15 (0-50); Potassium 4.4 mmol/L (3.4-5.1); Sodium 139 mmol/L (137-145); Total Protein 6.8 g/dL (6.3-8.2)
== END ==
PROVIDERS: PCP Family Medicine; Referring Provider Acupuncturist; Visit Provider Acupuncturist
DX: R53.83 Other fatigue (principal); R11.0 Nausea
CPT/HCPCS: 36415; 80053; 82977; 85025; 86003; 86008

== ENCOUNTER → 2021-11-04 08:19 | Outpatient (CLI) | payer OTHER, SELFPAY ==
[2021-11-04 09:55] LABS: Add Manual Diff / Slide Review NO; Basophils Absolute Auto 100 /uL (0-100); Basophils Percent Auto 1.3 % (0-2); Eosinophils Absolute Auto 200 /uL (0-450); Eosinophils Percent Auto 4.5 % (2-4); Hematocrit 39.5 % (36-46); Hemoglobin 13.6 g/dL (12.0-16.0); Lymphocytes Absolute Auto 1400 /uL (1100-4500); Lymphocytes Percent Auto 26.2 % (25-40); Mean Corpuscular HGB Conc 34.3 % (30-36); Mean Corpuscular Hemoglobin 32.2 PG (26-34); Mean Corpuscular Volume 93.9 fL (80-100); Monocytes Absolute Auto 400 /uL (0-900); Monocytes Percent Auto 6.9 % (3-14); Neutrophils Absolute Auto 3400 /uL (1500-7000); Neutrophils Percent Auto 61.1 % (50-75); Platelet Count 297 X10^3/uL (150-400); Red Blood Cell Count 4.21 X10^6/uL (4.0-5.2); Red Cell Distribution Width 13.2 % (11.6-14.8); White Blood Cell Count 5.5 X10^3/uL (4.5-11.0)
[2021-11-04 10:06] LABS: Alanine Aminotransferase 17 IU/L (<35); Albumin 4.1 g/dL (3.5-5.0); Albumin Globulin Ratio 1.7 (1.0-2.8); Alkaline Phosphatase 88 U/L (38-126); Aspartate Aminotransferase 21 IU/L (14-36); BUN Creatinine Ratio 15.2 (6-22); Bilirubin Total 0.5 mg/dL (0.2-1.3); Blood Urea Nitrogen 12 mg/dL (7-17); Calcium 9.2 mg/dL (8.4-10.2); Carbon Dioxide 30 mmol/L (22-32); Chloride 104 mmol/L (98-107); Estimated Glomerular Filt Rate > 60 mL/min (>60); Gamma Glutamyl Transpeptidase 19 U/L (12-43); Globulin 2.4 g/dL (1.7-4.1); Glucose 100 mg/dL (80-110); HEMOLYSIS < 15 (0-50); Potassium 4.4 mmol/L (3.4-5.1); Sodium 140 mmol/L (137-145); Total Protein 6.5 g/dL (6.3-8.2)
[2021-11-05 05:37] LABS: Insulin Level Total 15.8 uIU/mL (2.6-24.9)
[2021-11-05 08:42] LABS: Apolipoprotein B 130 mg/dL (<90)
[2021-11-09 13:09] LABS: Zinc,RBC 1406 ug/dL (878-1660)
== END ==
PROVIDERS: PCP Family Medicine; Referring Provider Acupuncturist; Visit Provider Acupuncturist
DX: R73.09 Other abnormal glucose (principal); R53.83 Other fatigue; M85.80 Other specified disorders of bone density and structure, unspecified site; Z82.49 Family history of ischemic heart disease and other diseases of the circulatory system; M79.10 Myalgia, unspecified site; R19.7 Diarrhea, unspecified; R06.2 Wheezing; R20.2 Paresthesia of skin
CPT/HCPCS: 36415; 80053; 82172; 82525; 82977; 83525; 84630; 85025; 86003; 86008

== ENCOUNTER → 2021-11-22 14:40 | Outpatient (CLI) | payer OTHER, SELFPAY | PROVIDERS: PCP Family Medicine; Referring Provider Acupuncturist; Visit Provider Acupuncturist | DX: R05.3 Chronic cough (principal); R53.82 Chronic fatigue, unspecified | CPT/HCPCS: 86606; 86635; 86698; 86612 ==

== ENCOUNTER → 2022-03-16 11:16 | Outpatient (CLI) | payer OTHER, SELFPAY ==
[2022-03-16 12:09] LABS: COVID19 -Nasal RAPID Negative (Negative)
== END ==
PROVIDERS: PCP Family Medicine; Referring Provider Acupuncturist; Visit Provider Acupuncturist
DX: Z20.822 Contact with and (suspected) exposure to COVID-19 (principal); R53.83 Other fatigue
CPT/HCPCS: 87635; C9803

== ENCOUNTER → 2022-03-17 10:20 | Outpatient (CLI) | payer OTHER, SELFPAY ==
--- NOTE | 2022-03-23 09:13 | PM.PFT.1 ---
Pulmonary Function Test Referral & Results Date Patient Seen: 03/17/22 Requesting provider: Rikki Elliott Results: The spirometry demonstrates an FVC of 2.43 L which is 72% of predicted. The FEV1 was measured at 1.58 L which is 61% of predicted. The FEV1/FVC ratio was 65 which is 84% of predicted. Following the administration of bronchodilator there was an 8% improvement in FEV1 and a 20% improvement in FEF 25-75%. Lung volumes show an SVC of 2.91 L which is 93% of predicted. The diffusing capacity was measured at 19.20 which is 74% of predicted. No hemoglobin value was provided, so no correction for potential anemia could be made, if appropriate. The maximum voluntary ventilation was reduced Interpretation: This study demonstrates mild obstructive lung disease based on reduction FEV1 although FEV1/FVC ratio is relatively preserved. There is evidence of minimal benefit following bronchodilator administration as above. However shape a flow volume loop really does not support the presence of any significant obstructive lung disease Lung volumes are normal There is a very minimal reduction in diffusing capacity suggests the possibility of disease at the capillary alveolar level as well Clinical correlation suggested
== END ==
PROVIDERS: Acupuncturist; PCP Family Medicine; Referring Provider Family Medicine; Visit Provider Family Medicine
DX: Z77.120 Contact with and (suspected) exposure to mold (toxic) (principal); R53.83 Other fatigue; J98.8 Other specified respiratory disorders
CPT/HCPCS: 36415; 83520; 94060; 94726; 94729

== ENCOUNTER → 2022-12-21 11:33 | Outpatient (CLI) | payer OTHER, SELFPAY ==
[2022-12-21 12:28] LABS: Add Manual Diff / Slide Review NO; Basophils Absolute Auto 100 /uL (0-100); Basophils Percent Auto 1.7 % (0-2); Eosinophils Absolute Auto 300 /uL (0-450); Eosinophils Percent Auto 5.4 % (2-4); Hematocrit 39.7 % (36-46); Hemoglobin 13.7 g/dL (12.0-16.0); Lymphocytes Absolute Auto 1600 /uL (1100-4500); Lymphocytes Percent Auto 25.8 % (25-40); Mean Corpuscular HGB Conc 34.4 % (30-36); Mean Corpuscular Hemoglobin 32.1 PG (26-34); Mean Corpuscular Volume 93.5 fL (80-100); Monocytes Absolute Auto 400 /uL (0-900); Monocytes Percent Auto 6.2 % (3-14); Neutrophils Absolute Auto 3700 /uL (1500-7000); Neutrophils Percent Auto 60.9 % (50-75); Platelet Count 298 X10^3/uL (150-400); Red Blood Cell Count 4.25 X10^6/uL (4.0-5.2); Red Cell Distribution Width 13.5 % (11.6-14.8); White Blood Cell Count 6.1 X10^3/uL (4.5-11.0)
[2022-12-21 13:10] LABS: Alanine Aminotransferase 30 IU/L (<35); Albumin 3.9 g/dL (3.5-5.0); Albumin Globulin Ratio 1.9 (1.0-2.8); Alkaline Phosphatase 105 U/L (38-126); Aspartate Aminotransferase 22 IU/L (14-36); BUN Creatinine Ratio 13.2 (6-22); Bilirubin Total 0.4 mg/dL (0.2-1.3); Blood Urea Nitrogen 10 mg/dL (7-17); Calcium 9.1 mg/dL (8.4-10.2); Carbon Dioxide 29 mmol/L (22-32); Chloride 104 mmol/L (98-107); Cholesterol 252 mg/dL (140-199); Estimated Glomerular Filt Rate > 60 mL/min (>60); Globulin 2.1 g/dL (1.7-4.1); Glucose 91 mg/dL (80-110); HDL Cholesterol 64 mg/dL (40-60); HEMOLYSIS < 15 (0-50); LDL Cholesterol Calculated 160 mg/dL (<100); Potassium 4.6 mmol/L (3.4-5.1); Sodium 139 mmol/L (137-145); Triglycerides 139 mg/dL (35-150)
== END ==
PROVIDERS: PCP Family Medicine; Referring Provider Family Medicine; Visit Provider Family Medicine
DX: M79.7 Fibromyalgia (principal); K76.0 Fatty (change of) liver, not elsewhere classified; Z13.29 Encounter for screening for other suspected endocrine disorder
CPT/HCPCS: 36415; 80053; 80061; 84443; 85025

== ENCOUNTER → 2023-03-01 09:25 | Outpatient (CLI) | payer OTHER, SELFPAY ==
[2023-03-01 10:43] LABS: Add Manual Diff / Slide Review NO; Basophils Absolute Auto 100 /uL (0-100); Basophils Percent Auto 1.3 % (0-2); Eosinophils Absolute Auto 200 /uL (0-450); Eosinophils Percent Auto 2.5 % (2-4); Hematocrit 41.6 % (36-46); Hemoglobin 14.2 g/dL (12.0-16.0); Lymphocytes Absolute Auto 1400 /uL (1100-4500); Lymphocytes Percent Auto 19.1 % (25-40); Mean Corpuscular HGB Conc 34.2 % (30-36); Mean Corpuscular Hemoglobin 32.3 PG (26-34); Mean Corpuscular Volume 94.4 fL (80-100); Monocytes Absolute Auto 500 /uL (0-900); Monocytes Percent Auto 7.2 % (3-14); Neutrophils Absolute Auto 5200 /uL (1500-7000); Neutrophils Percent Auto 69.9 % (50-75); Platelet Count 328 X10^3/uL (150-400); Red Blood Cell Count 4.41 X10^6/uL (4.0-5.2); Red Cell Distribution Width 13.4 % (11.6-14.8); White Blood Cell Count 7.4 X10^3/uL (4.5-11.0)
[2023-03-01 11:23] LABS: Alanine Aminotransferase 30 IU/L (<35); Albumin 4.4 g/dL (3.5-5.0); Albumin Globulin Ratio 1.6 (1.0-2.8); Alkaline Phosphatase 99 U/L (38-126); Aspartate Aminotransferase 26 IU/L (14-36); Bilirubin Total 0.7 mg/dL (0.2-1.3); Blood Urea Nitrogen 16 mg/dL (7-17); Calcium 9.8 mg/dL (8.4-10.2); Carbon Dioxide 27 mmol/L (22-32); Chloride 103 mmol/L (98-107); Estimated Glomerular Filt Rate > 60 mL/min (>60); Globulin 2.8 g/dL (1.7-4.1); Glucose 105 mg/dL (80-110); HEMOLYSIS < 15 (0-50); Potassium 4.3 mmol/L (3.4-5.1); Sodium 137 mmol/L (137-145); Total Protein 7.2 g/dL (6.3-8.2); Uric Acid 4.4 mg/dL (2.5-6.2)
[2023-03-03 19:35] LABS: CCP Antibodies IgG/IgA 0 units (0-19)
== END ==
PROVIDERS: PCP Family Medicine; Referring Provider Acupuncturist; Visit Provider Acupuncturist
DX: M25.571 Pain in right ankle and joints of right foot (principal); M79.671 Pain in right foot
CPT/HCPCS: 36415; 80053; 83516; 84550; 85025; 86200; 86235; 86356; 86357; 86359

== ENCOUNTER → 2023-03-22 14:50 | Outpatient (CLI) | payer OTHER, SELFPAY ==
[2023-03-22 16:55] LABS: Free T3, Triiodothyronine Free 3.29 pg/mL (2.77-5.27); Free T4, Direct Thyroxine 1.14 ng/dL (0.78-2.19)
== END ==
PROVIDERS: PCP Family Medicine; Referring Provider Acupuncturist; Visit Provider Acupuncturist
DX: R53.83 Other fatigue (principal); Z13.1 Encounter for screening for diabetes mellitus
CPT/HCPCS: 36415; 83036; 84439; 84443; 84481

== ENCOUNTER → 2023-12-22 07:37 | Outpatient (CLI) | payer OTHER, SELFPAY ==
[2023-12-22 08:17] LABS: Add Manual Diff / Slide Review NO; Basophils Absolute Auto 100 /uL (0-100); Basophils Percent Auto 1.5 % (0-2); Eosinophils Absolute Auto 200 /uL (0-450); Eosinophils Percent Auto 3.4 % (2-4); Hematocrit 39.3 % (36-46); Hemoglobin 13.5 g/dL (12.0-16.0); Lymphocytes Absolute Auto 1600 /uL (1100-4500); Lymphocytes Percent Auto 26.6 % (25-40); Mean Corpuscular HGB Conc 34.3 % (30-36); Mean Corpuscular Hemoglobin 32.2 PG (26-34); Mean Corpuscular Volume 93.9 fL (80-100); Monocytes Absolute Auto 500 /uL (0-900); Monocytes Percent Auto 7.5 % (3-14); Neutrophils Absolute Auto 3700 /uL (1500-7000); Platelet Count 300 X10^3/uL (150-400); Red Blood Cell Count 4.19 X10^6/uL (4.0-5.2); Red Cell Distribution Width 13.4 % (11.6-14.8); White Blood Cell Count 6.1 X10^3/uL (4.5-11.0)
[2023-12-22 08:28] LABS: HEMOLYSIS < 15 (0-50)
[2023-12-22 08:34] LABS: Alanine Aminotransferase 21 IU/L (<35); Albumin 4.1 g/dL (3.5-5.0); Alkaline Phosphatase 95 U/L (38-126); Aspartate Aminotransferase 21 IU/L (14-36); BUN Creatinine Ratio 18.2 (6-22); Bilirubin Total 0.7 mg/dL (0.2-1.3); Blood Urea Nitrogen 16 mg/dL (7-17); Calcium 9.5 mg/dL (8.4-10.2); Carbon Dioxide 29 mmol/L (22-32); Chloride 107 mmol/L (98-107); Estimated Glomerular Filt Rate > 60 mL/min (>60); Globulin 2.1 g/dL (1.7-4.1); Glucose 96 mg/dL (80-110); Sodium 139 mmol/L (137-145); Total Protein 6.2 g/dL (6.3-8.2); Uric Acid 4.9 mg/dL (2.5-6.2)
[2023-12-22 08:44] LABS: Appearance Urine UA CLEAR; Bilirubin Urine UA NEGATIVE (NEGATIVE); Color Urine UA YELLOW; Glucose Urine UA NEGATIVE (Negative); Ketones Urine UA NEGATIVE (NEGATIVE); Leukocyte Esterase Urine UA NEGATIVE (NEGATIVE); Nitrite Urine UA NEGATIVE (Negative); Occult Blood Urine UA NEGATIVE (Negative); Protein Urine UA NEGATIVE (Negative); Urobilinogen Urine UA 0.2 E.U./dL (0.2)
[2023-12-22 09:10] LABS: Bacteria Urine None Seen; Culture Indicated Urine Cult Not Indicated; RBC Urine None Seen (0-5/HPF); Squamous Epithelial Cell Urine 0-1 /HPF (0-5/HPF); Urine Volume 10mL (spun); WBC Urine None Seen (0-5/HPF); pH Urine UA 5.5 (4.5-8.0)
[2023-12-22 14:32] LABS: High Sensitivity CRP - Cardiac 5.6 mg/L (1.0-3.0)
[2023-12-25 17:08] LABS: Cardiolipin Ab IgG <9 GPL U/mL (0-14); Cardiolipin Ab IgM <9 MPL U/mL (0-12)
== END ==
LOC: LAB 07:39
PROVIDERS: PCP Family Medicine; Referring Provider Acupuncturist; Visit Provider Acupuncturist
DX: R53.83 Other fatigue (principal); I51.7 Cardiomegaly; J45.991 Cough variant asthma; M79.10 Myalgia, unspecified site
CPT/HCPCS: 36415; 80053; 81001; 83090; 84550; 85025; 86140

== ENCOUNTER → 2024-01-10 11:50 | Outpatient (CLI) | payer OTHER, SELFPAY ==
--- NOTE | 2024-01-10 11:51 | DI.RAD.S_ITS ---
PROCEDURE: XR DEXA AXIAL SKELETON INDICATIONS: screen osteoporosis COMPARISON: None. FINDINGS: Lumbar Spine: Bone mineral density 0.812 g/cm2, T score -2.1. Left Hip: Bone mineral density 0.770 g/cm2, T score -1.4 Left Femoral Neck: Bone mineral density is 0.649 g/cm2, T score -1.8 Right Hip: Bone mineral density 0.751 g/cm2, T score -1.6 Right Femoral Neck: Bone mineral density 0.680 g/cm2, T score -1.6 Fracture Risk Calculation (when applicable): 10-year fracture risk of a major osteoporotic fracture 14% and of a hip fracture 1.4% (T score greater or equal to -1.0 to: NORMAL) (T score from -1.1 to -2.4: OSTEOPENIA) (T score less than or equal to -2.5: OSTEOPOROSIS) IMPRESSION: There is osteopenia of the lumbar spine, bilateral hip joints and bilateral femoral neck. Follow-up guidelines as follows: Osteoporosis: Consider a repeat DEXA and Vertebral Fracture Assessment (VFA) exam in 2 years or sooner if medically necessary, to reassess this patient's status. Osteopenia: Consider a repeat DEXA in 2-3 years to reassess this patient's status, or if there is a new clinical indication. Normal: Consider a repeat DEXA in 5 years or sooner, or if there is a new clinical indication. All treatment decisions require clinical judgment and consideration of individual patient factors, including patient preferences, comorbidities, previous drug use, risk factors not captured in the FRAX model (e.g., frailty, falls, vitamin D deficiency, increased bone turnover, interval significant decline in bone density ) and possible under- or over-estimation of fracture risk by FRAX. In addition, the NOF Guide recommends that FDA-approved medical therapies be considered in postmenopausal women and men age >= 50 years with a: * Hip or vertebral (clinical or morphometric) fracture * T-score of <=-2.5 at the spine or hip * Ten-year fracture probability by FRAX of >= 3% for hip fracture or >=20% for major osteoporotic fracture. People with diagnosed cases of osteoporosis or at high risk for fracture should have regular bone mineral density tests. For patients eligible for Medicare, routine testing is allowed once every 2 years. The testing frequency can be increased to one year for patients who have rapidly progressing disease, those who are receiving or discontinuing medical therapy to restore bone mass, or have additional risk factors. Dictated by: Toby Hannon M.D. on 01/10/2024 at 15:03 Approved by: Toby Hannon M.D. on 01/10/2024 at 15:07
[2024-01-10 14:58] LABS: NT-proBNP (BNP-Adult 18+) 26 pg/mL (<125)
[2024-01-10 14:59] LABS: Appearance Urine UA CLEAR; Bilirubin Urine UA NEGATIVE (NEGATIVE); Color Urine UA YELLOW; Glucose Urine UA NEGATIVE (Negative); Ketones Urine UA NEGATIVE (NEGATIVE); Leukocyte Esterase Urine UA NEGATIVE (NEGATIVE); Nitrite Urine UA NEGATIVE (Negative); Occult Blood Urine UA NEGATIVE (Negative); Protein Urine UA NEGATIVE (Negative); Urobilinogen Urine UA 0.2 E.U./dL (0.2)
[2024-01-10 15:10] LABS: RBC Urine None Seen (0-5/HPF); Urine Volume 10mL (spun)
[2024-01-10 15:11] LABS: Bacteria Urine Occasional (0-1); Culture Indicated Urine Specimen Cultured; Squamous Epithelial Cell Urine 5-10 /HPF (0-5/HPF); WBC Urine 5-10/HPF (0-5/HPF)
[2024-01-10 15:55] LABS: Microalbumin Urine Random 0.7 mg/dL (0-1.6)
== END ==
PROVIDERS: PCP Family Medicine; Referring Provider Family Medicine; Visit Provider Family Medicine
DX: M85.89 Other specified disorders of bone density and structure, multiple sites (principal); I51.7 Cardiomegaly; R73.09 Other abnormal glucose
CPT/HCPCS: 36415; 77080; 81001; 82043; 82570; 83880; 87086

== ENCOUNTER → 2024-02-22 13:55 | Outpatient (CLI) | payer MEDICARE, OTHER, SELFPAY ==
--- NOTE | 2024-02-22 13:56 | DI.ECHO.S_ITS ---
[facility] : [id number] [place] : : [id number] : : Phone: [phone] Echocardiogram Report + + :Name: AMAN JACOBSEN Study Date: 02/22/2024 Height: 66 in : :Hospital ReadingLocation: Weight: 200 lb : : Gender: Female BSA: 2.0 m2 : :: 1960 Age: 63 yrs BP: 123/91 mmHg: :Reason For Study: FATIGUE AND CARDIOMEGALY : :Ordering Physician: CHARISSE LATIFPerformed By: Sonal Jacome : :Referring: CHARISSE LATIF : + + Interpretation Summary The left ventricle is normal in size. The left ventricular ejection fraction is normal. The ejection fraction is estimated to be 60-65%. The right ventricle is normal in size and function. There is mild tricuspid regurgitation. The right ventricular systolic pressure is estimated to be at least 25 mmHg based on an estimated right atrial pressure of 3 mm Hg. Procedure: A two-dimensional transthoracic echocardiogram with color flow and Doppler was performed. The study quality was technically adequate. There is no prior echocardiogram noted for this patient. The patient was in sinus rhythm with heart rates between 59-73 bpm during the exam. Left Ventricle: The left ventricle is normal in size. Proximal septal thickening is noted. There is no thrombus. The ejection fraction is estimated to be 60-65%. The left ventricular ejection fraction is normal. There are no focal wall motion abnormalities. Diastolic parameters suggest a relaxation abnormality of the left ventricle, consistent with probable normal filling pressures. Right Ventricle: The right ventricle is normal in size and function. Atria: The left atrial size is normal. Right atrial size is normal. There is no Doppler evidence for an interatrial shunt. Mitral Valve: The mitral valve is normal in structure and function. There is trace mitral regurgitation. Aortic Valve: The aortic valve is trileaflet. The aortic valve opens well. There is no aortic valve stenosis. No aortic regurgitation is present. Tricuspid Valve: The tricuspid valve is normal. The right ventricular systolic pressure is estimated to be at least 25 mmHg based on an estimated right atrial pressure of 3 mm Hg. There is mild tricuspid regurgitation. Pulmonic Valve: The pulmonic valve leaflets are thin and pliable; valve motion is normal. There is no pulmonic valvular regurgitation. Great Vessels: The aortic root is normal size. The dimensions of the ascending aorta are normal. The IVC is of normal diameter and collapses greater than 50% with a sniff. This suggests a low right atrial pressure of 3 mm Hg. Pericardium/ Pleura There is no pericardial effusion. There is an anterior echo-free space consistent with a fat pad. There is no pleural effusion. MMode/2D Measurements & Calculations LVIDd: 5.0 cm LVOT diam: 2.0 cm LVIDs: 3.3 cm Ao root diam: 3.3 cm FS: 33.9 % asc Aorta Diam: 3.4 cm IVSd: 1.2 cm Ao Arch Diam (Prox Trans): 2.4 cm LVPWd: 0.81 cm LV madera. diameter/BSA (cm/m^2): 2.5 LV sys. diameter/BSA (cm/m^2): 1.7 LA A2 area: 21.0 cm2 RA long axis: 5.1 cm LA A4 area: 16.9 cm2 RA area: 17.9 cm2 LA length (vol): 5.0 cm RA vol: 53.7 ml LA vol: 60.1 ml RA : 26.9 ml/m2 LA vol index: 30.0 ml/m2 IVC diam: 1.5 cm RVD1 (basal): 3.4 cm TAPSE: 1.8 cm Doppler Measurements & Calculations Ao V2 max: 160.5 cm/sec LVOT Max Dillon: 97.2 cm/sec Ao V2 mean: 105.5 cm/sec LV V1 max P.8 mmHg Ao max P.3 mmHg LV V1 VTI: 21.5 cm Ao mean P.2 mmHg DENIS(I,D): 2.0 cm2 Ao V2 VTI: 33.5 cm DENIS(V,D): 1.9 cm2 sev ratio: 0.64 DENIS indexed to BSA (cm^2/m^2): 1.0 MV E max dillon: 59.2 cm/sec TR max dillon: 231.9 cm/sec MV A max dillon: 61.2 cm/sec TR max P.5 mmHg MV E/A: 0.97 PA V2 max: 109.6 cm/sec Med Peak E' Dillon: 8.0 cm/sec PA V2 mean: 70.4 cm/sec E/E' med: 7.4 PA mean P.3 mmHg Lat Peak E' Dillon: 9.7 cm/sec PA pr(Accel): 39.6 mmHg E/E' lat: 6.1 E/e' average: 6.7 MV dec time: 0.25 sec SV(LVOT): 68.0 ml Reading Physician:04:44 PM
== END ==
PROVIDERS: PCP Family Medicine; Referring Provider Family Medicine; Visit Provider Family Medicine
DX: I07.1 Rheumatic tricuspid insufficiency (principal); R53.83 Other fatigue
CPT/HCPCS: 93306

== ENCOUNTER → 2024-03-18 15:22 | Outpatient (CLI) | payer MEDICARE, OTHER, SELFPAY ==
[2024-03-18 18:11] LABS: NT-proBNP (BNP-Adult 18+) 78 pg/mL (<125)
[2024-03-20 06:06] LABS: Ceruloplasmin 29.6 mg/dL (19.0-39.0); Immunoglobulin A 17 mg/dL (87-352); Immunoglobulin G, Quantitative 615 mg/dL (586-1602); Immunoglobulin M, Quantitative 29 mg/dL (26-217)
== END ==
PROVIDERS: PCP Family Medicine; Referring Provider Family Medicine; Visit Provider Family Medicine
DX: I51.7 Cardiomegaly (principal); R53.83 Other fatigue; D89.40 Mast cell activation, unspecified; Z77.120 Contact with and (suspected) exposure to mold (toxic); M79.7 Fibromyalgia
CPT/HCPCS: 36415; 82390; 82525; 82784; 83880; 84630

== ENCOUNTER → 2024-09-10 16:44 | Outpatient (CLI) | payer MEDICARE, OTHER, SELFPAY | PROVIDERS: PCP Family Medicine; Visit Provider Family Medicine | DX: R35.0 Frequency of micturition (principal) | CPT/HCPCS: 87086 ==

== ENCOUNTER → 2024-10-01 13:21 | Outpatient (CLI) | payer MEDICARE, OTHER, SELFPAY ==
[2024-10-01 15:03] LABS: C-Reactive Protein Quant < 0.5 mg/dL (<1.0)
[2024-10-03 04:10] LABS: Homocysteine 9.7 umol/L (0.0-17.2)
[2024-10-04 20:07] LABS: Zinc 61 ug/dL (44-115)
== END ==
PROVIDERS: PCP Family Medicine; Referring Provider Family Medicine; Visit Provider Family Medicine
DX: D89.40 Mast cell activation, unspecified (principal); R53.82 Chronic fatigue, unspecified; R26.89 Other abnormalities of gait and mobility; Z77.120 Contact with and (suspected) exposure to mold (toxic); M79.7 Fibromyalgia
CPT/HCPCS: 36415; 83090; 84630; 86140

== ENCOUNTER → 2024-10-23 14:23 | Outpatient (CLI) | payer MEDICARE, OTHER, SELFPAY ==
--- NOTE | 2024-10-23 14:28 | DI.RAD.S_ITS ---
PROCEDURE: XR FOOT LT MIN 3V INDICATIONS: Foot pain TECHNIQUE: 3 views of the foot were acquired. COMPARISON: None. FINDINGS: Bones: Severe hallux valgus , moderate metatarsus abductus and mild pes planus noted. There are hammertoe deformities 2nd through 5th digits. Joints: Moderate 1st MTP degeneration noted. There is also moderate 2nd through 5th interphalangeal degeneration Soft tissues: Mild diffuse soft tissue swelling. IMPRESSION: Chronic findings as described Dictated by: Jose Alcantar M.D. on 10/24/2024 at 11:16 Approved by: Jose Alcantar M.D. on 10/24/2024 at 11:17
--- NOTE | 2024-10-23 14:28 | DI.RAD.S_ITS ---
PROCEDURE: XR FOOT RT MIN 3V INDICATIONS: Foot pain TECHNIQUE: 3 views of the foot were acquired. COMPARISON: None. FINDINGS: Bones: Moderate severe hallux valgus, moderate metatarsus abductus and hammertoe deformities 2nd through 5th digits noted Joints: Mild degeneration 1st MTP and 2nd through 5th interphalangeal joints Soft tissues: No soft tissue abnormality. IMPRESSION: Chronic findings as described Dictated by: Jose Alcantar M.D. on 10/24/2024 at 11:17 Approved by: Jose Alcantar M.D. on 10/24/2024 at 11:18
== END ==
LOC: DI 14:27
PROVIDERS: PCP Family Medicine; Referring Provider Family Medicine; Visit Provider Family Medicine
DX: M19.071 Primary osteoarthritis, right ankle and foot (principal); M21.611 Bunion of right foot; M21.612 Bunion of left foot; M72.2 Plantar fascial fibromatosis
CPT/HCPCS: 73630

== ENCOUNTER → 2024-11-07 15:31 | Outpatient (CLI) | payer MEDICARE, OTHER, SELFPAY ==
--- NOTE | 2024-11-07 15:33 | DI.MRI.S_ITS ---
PROCEDURE: MR ANKLE LT WO CON INDICATIONS: ankle pain - left TECHNIQUE: Noncontrast sagittal T1 spin echo and T2 fast spin echo with fat saturation, axial proton density fast spin echo and T2 fast spin echo with fat saturation, coronal T1 spin echo and T2 fast spin echo with fat saturation through the ankle/hindfoot. COMPARISON: [facility], CR, XR FOOT LT MIN 3V, 10/23/2024, 14:23. FINDINGS: Image quality: Excellent. Bones and joints: No acute trabecular bone injury or fracture. No hindfoot coalitions. Chronic osteochondral lesion is seen at the medial talar dome measuring approximately 10 x 6 x 4 mm with overlying full-thickness cartilage loss and subchondral cystic changes but no disruption of the subchondral plate or loose osteochondral fragment. Moderate degenerative changes at the 2nd tarsometatarsal joint. No tibiotalar effusion. Medial structures: The deltoid ligament and the spring ligament complex are intact. Mild posterior tibialis tenosynovitis. The flexor digitorum longus and flexor hallucis longus tendons are intact. The posterior tibial neurovascular bundle appears normal within the tarsal tunnel, without extrinsic mass effect. Lateral structures: Remote prior low-grade sprains of the anterior talofibular ligament and the calcaneofibular ligament. The posterior talofibular ligament is intact. The anterior and posterior tibiofibular ligaments are intact. The peroneus longus and brevis tendons demonstrate mild tenosynovitis. The sinus tarsi demonstrates normal fatty signal. Anterior structures: The tibialis anterior, extensor hallucis longus, and extensor digitorum longus tendons appear intact. Posterior and plantar structures: Mild Achilles tendinosis. There is moderate thickening of the proximal plantar fascia with surrounding soft tissue and osseous edema. Focal fluid signal intensity is seen at the origin of the central band that could indicate low-grade partial intrasubstance tearing. No abductor digiti minimi muscle atrophy to suggest Gallagher neuropathy. IMPRESSION: 1. Low-grade partial tearing of the central band of the plantar fascia at the origin with surrounding soft tissue and osseous edema superimposed on chronic fasciitis. 2. Chronic osteochondral lesion at the medial talar dome measuring up to 10 mm with full-thickness cartilage loss and subchondral cystic changes but no disruption of the subchondral plate or loose osteochondral fragment. 3. Mild distal posterior tibialis tenosynovitis. 4. Mild tenosynovitis of the distal peroneus brevis and longus tendons. 5. Remote prior low-grade sprains of the anterior talofibular ligament and the calcaneofibular ligament. 6. Focal moderate degenerative changes at the 2nd tarsometatarsal joint. 7. Mild Achilles tendinosis. Approved by: Rolando Sherman M.D. on 11/08/2024 at 10:43
--- NOTE | 2024-11-07 15:33 | DI.MRI.S_ITS ---
PROCEDURE: MRFOOT LT WO CON INDICATIONS: foot pain - left TECHNIQUE: Multiphasic, multisequence MRI of the forefoot was performed, without intravenous contrast administration. COMPARISON: [facility], CR, XR FOOT LT MIN 3V, 10/23/2024, 14:23. FINDINGS: Image quality: Excellent. Bones and joints: Severe hallux valgus. Hammertoe deformity of the 2nd toe. At least moderate 1st metatarsophalangeal osteoarthrosis with subchondral cystic changes and small marginal osteophytes. Mild degenerative changes at the metatarsal-sesamoid articulations. There is lateral subluxation of the hallux sesamoids. Scattered degenerative changes are seen at the interphalangeal joints of the toes. Moderate 2nd tarsometatarsal osteoarthrosis. No acute trabecular bone injury or fracture. Soft tissues: The visualized plantar foot muscles demonstrate normal signal and bulk. Visualized flexor and extensor tendons appear intact, without tenosynovitis. The distal insertions of the peroneus brevis and longus tendons appear intact. The principal Lisfranc ligament appears intact. No soft tissue ganglion cysts or bursal fluid collections. Sagittal images demonstrate no evidence for plantar plate tears. IMPRESSION: 1. Severe hallux valgus with moderate degenerative changes at the 1st metatarsophalangeal joint and lateral subluxation of the hallux sesamoids. 2. Hammertoe deformity of the second toe. Moderate degenerative changes in the interphalangeal joints of the toes. 3. Moderate 2nd tarsometatarsal osteoarthrosis. Approved by: Rolando Sherman M.D. on 11/08/2024 at 11:09
== END ==
PROVIDERS: PCP Family Medicine; Referring Provider Family Medicine; Visit Provider Family Medicine
DX: M19.072 Primary osteoarthritis, left ankle and foot (principal); M20.42 Other hammer toe(s) (acquired), left foot; M20.12 Hallux valgus (acquired), left foot; M25.572 Pain in left ankle and joints of left foot; M79.672 Pain in left foot
CPT/HCPCS: 73718; 73721

== ENCOUNTER → 2024-11-12 16:38 | Outpatient (CLI) | payer MEDICARE, OTHER, SELFPAY ==
--- NOTE | 2024-11-12 16:41 | DI.MRI.S_ITS ---
PROCEDURE: MR ANKLE RT WO CON INDICATIONS: Pain to R ankle TECHNIQUE: Noncontrast sagittal T1 spin echo and T2 fast spin echo with fat saturation, axial proton density fast spin echo and T2 fast spin echo with fat saturation, coronal T1 spin echo and T2 fast spin echo with fat saturation through the ankle/hindfoot. COMPARISON: [facility], MR, MR ANKLE LT WO CON, 11/07/2024, 16:06. FINDINGS: Image quality: Excellent. Bones and joints: [id number] osteoarthritic changes are noted in midfoot and hindfoot joints most notably involving 2nd TMT joint with joint space narrowing, subchondral sclerosis and subcortical cystic changes. There is no fracture or dislocation. Osteochondral injury involving medial weight-bearing portion of talar dome is seen measures 5 mm in size. Small joint effusion, no loose bodies. Medial structures: The posterior tibialis tendon is thickened with fluid distension of tendon sheath at the level of mid to distal talus and talonavicular joint. The flexor digitorum longus, and flexor hallucis longus tendons are intact. The posterior tibial neurovascular bundle appears normal within the tarsal tunnel, without extrinsic mass effect. Significant thickening of the deltoid ligament and spring ligament is seen with subtle intrasubstance T2 hyperintense signal. Lateral structures: The anterior talofibular, calcaneofibular, and posterior talofibular ligaments appear intact. More superiorly, the anterior and posterior tibiofibular ligaments appear intact, as is the intermalleolar ligament. The tibiofibular syndesmosis is normal in width at 2 mm or less. The peroneus longus and brevis tendons demonstrate normal location and morphology. The sinus tarsi demonstrates normal fatty signal, without edema, fibrosis, or cyst formation. Anterior structures: The tibialis anterior, extensor hallucis longus, and extensor digitorum longus tendons appear intact. The dorsal talonavicular ligament appears intact. Posterior and plantar structures: Achilles tendon is intact. Medial and lateral bands of the plantar fascia are of normal thickness. No abductor digiti quinti muscle atrophy to suggest Gallagher neuropathy. IMPRESSION: 1. [id number] midfoot and hindfoot joint osteoarthritis more notably involving 2nd TMT joint. No fracture or dislocation. 5 mm osteochondral injury involving medial weight-bearing portion of talar dome with surrounding edema. Small joint effusion, no intra-articular loose bodies. 2. Moderate grade tenosynovitis involving posterior tibialis tendon at the level of distal talus and talonavicular joint. 3. Low to moderate grade sprain/intrasubstance partial-thickness tear involving deltoid ligament and spring ligament. 4. Rest of the ankle tendons are intact. Lateral ankle ligaments are intact. Dictated by: Andrew Tinsley M.D. on 11/13/2024 at 9:01 Approved by: Andrew Tinsley M.D. on 11/13/2024 at 9:23
--- NOTE | 2024-11-12 16:41 | DI.MRI.S_ITS ---
PROCEDURE: MR FOOT RT WO CON INDICATIONS: Pain to R ankle/foot TECHNIQUE: Multiphasic, multisequence MRI of the forefoot was performed, without intravenous contrast administration. COMPARISON: None. FINDINGS: Image quality: Excellent. Bones and joints: There is moderate hallux valgus. [id number] midfoot and forefoot joint osteoarthritis more notably involving 2nd TMT joint and 1st MTP joint. No acute fracture or dislocation. No metatarsal stress fractures. No suspicious intraosseous lesions. Soft tissues: The visualized plantar foot muscles demonstrate normal signal and bulk. Visualized flexor and extensor tendons appear intact, without tenosynovitis. The distal insertions of the peroneus brevis and longus tendons appear intact. The principal Lisfranc ligament appears intact. No soft tissue ganglion cysts or bursal fluid collections. Sagittal images demonstrate no evidence for plantar plate tears in 2nd through 5th toes. There is low-grade partial-thickness tear involving medial sesamoid phalangeal ligament and inter sesamoid ligament of 1st metatarsal head concerning for low-grade turf toe injury. IMPRESSION: 1. Moderate hallux valgus and [id number] midfoot and forefoot joint osteoarthritis. No fracture or dislocation. No suspicious bony lesions. 2. Low-grade partial-thickness tear involving medial sesamoid phalangeal ligament and inter sesamoid ligament of 1st MTP joint suggestive of low-grade turf toe injury. 3. Rest of the tendons and ligaments of midfoot and forefoot are grossly intact. Dictated by: Andrew Tinsley M.D. on 11/13/2024 at 9:23 Approved by: Andrew Tinsley M.D. on 11/13/2024 at 9:36
== END ==
PROVIDERS: PCP Family Medicine; Referring Provider Family Medicine; Visit Provider Family Medicine
DX: M19.071 Primary osteoarthritis, right ankle and foot (principal); S93.521A Sprain of metatarsophalangeal joint of right great toe, initial encounter; M20.11 Hallux valgus (acquired), right foot; M25.571 Pain in right ankle and joints of right foot; G89.29 Other chronic pain; X58.XXXA Exposure to other specified factors, initial encounter
CPT/HCPCS: 73718; 73721

== ENCOUNTER → 2024-12-23 17:20 | Outpatient (CLI) | payer MEDICARE, OTHER, SELFPAY ==
[2024-12-23 17:49] LABS: Appearance Urine UA CLEAR; Bilirubin Urine UA NEGATIVE (NEGATIVE); Color Urine UA YELLOW; Glucose Urine UA NEGATIVE (Negative); Ketones Urine UA NEGATIVE (NEGATIVE); Leukocyte Esterase Urine UA NEGATIVE (NEGATIVE); Nitrite Urine UA NEGATIVE (Negative); Occult Blood Urine UA NEGATIVE (Negative); Protein Urine UA NEGATIVE (Negative); Specific Gravity Urine UA 1.020 (1.000-1.035); Urobilinogen Urine UA 0.2 E.U./dL (0.2)
[2024-12-23 17:50] LABS: pH Urine UA 6.0 (4.5-8.0)
[2024-12-23 17:57] LABS: Culture Indicated Urine Cult Not Indicated
== END ==
PROVIDERS: PCP Family Medicine; Referring Provider Family Medicine; Visit Provider Family Medicine
DX: R39.9 Unspecified symptoms and signs involving the genitourinary system (principal)
CPT/HCPCS: 81001

== ENCOUNTER → 2025-01-03 15:06 | Outpatient (CLI) | payer MEDICARE, OTHER, SELFPAY ==
--- NOTE | 2025-01-03 15:09 | DI.US.S_ITS ---
PROCEDURE: US RENAL COMPLETE INDICATIONS: FLANK PAIN TECHNIQUE: Real-time scanning was performed of the kidneys and bladder, with image documentation. COMPARISON: None. FINDINGS: Kidneys: Kidneys are normal in size. Right kidney measures 10.9 cm long; left kidney measures 11.3 cm long. Right renal cortical thickness is 1.8 cm; left renal cortical thickness is 1.5 cm. Renal cortical echotexture is normal. No hydronephrosis. 8 mm nonobstructing stone is seen in mid left renal collecting system. No suspicious solid mass lesions. Bladder: Pre-void bladder volume is 107 mL. Post-void residual is 55 mL. Pre- void images demonstrate no intraluminal masses or stones. On pre-void images, bilateral ureteral jets are noted with color Doppler interrogation. (Of note, ureteral jets may not be detectable in up to 25% of cases due to insufficient differences in specific gravity between ureteral and bladder urine). Miscellaneous: No free pelvic fluid. IMPRESSION: 1. Nonobstructing stone in left kidney as above. No solid appearing renal lesion. No hydronephrosis. 2. Normal appearing urinary bladder with small to moderate postvoid residual. Dictated by: Andrew Tinsley M.D. on 01/04/2025 at 23:30 Approved by: Andrew Tinsley M.D. on 01/04/2025 at 23:33
[2025-01-03 16:41] LABS: Free T3, Triiodothyronine Free 3.79 pg/mL (2.77-5.27); Free T4, Direct Thyroxine 1.06 ng/dL (0.78-2.19)
[2025-01-03 16:55] LABS: Thyroid Stimulating Hormone 0.932 uIU/mL (0.47-4.68)
== END ==
PROVIDERS: PCP Family Medicine; Referring Provider Family Medicine; Visit Provider Family Medicine
DX: N20.0 Calculus of kidney (principal); R10.9 Unspecified abdominal pain; M79.7 Fibromyalgia; R53.82 Chronic fatigue, unspecified; Z87.442 Personal history of urinary calculi; Z71.3 Dietary counseling and surveillance
CPT/HCPCS: 36415; 76770; 84439; 84443; 84481

== ENCOUNTER → 2025-01-08 15:01 | Outpatient (CLI) | payer MEDICARE, OTHER, SELFPAY ==
[2025-01-08 15:27] LABS: Add Manual Diff / Slide Review NO; Hematocrit 40.2 % (36-46); Hemoglobin 14.0 g/dL (12.0-16.0); Lymphocytes Absolute Auto 1800 /uL (1100-4500); Mean Corpuscular HGB Conc 34.9 % (30-36); Mean Corpuscular Hemoglobin 32.4 PG (26-34); Mean Corpuscular Volume 92.9 fL (80-100); Platelet Count 304 X10^3/uL (150-400)
[2025-01-08 15:46] LABS: Alanine Aminotransferase 24 IU/L (<35); Albumin 4.5 g/dL (3.5-5.0); Albumin Globulin Ratio 1.9 (1.0-2.8); Alkaline Phosphatase 92 U/L (38-126); Blood Urea Nitrogen 12 mg/dL (7-17); Calcium 9.9 mg/dL (8.4-10.2); Carbon Dioxide 26 mmol/L (22-32); Chloride 104 mmol/L (98-107); Cholesterol 274 mg/dL (140-199); Estimated Glomerular Filt Rate > 60 mL/min (>60); Globulin 2.4 g/dL (1.7-4.1); Glucose 115 mg/dL (70-99); HDL Cholesterol 58 mg/dL (40-60); HEMOLYSIS < 15 (0-50); Potassium 4.1 mmol/L (3.4-5.1); Sodium 140 mmol/L (137-145); Total Protein 6.9 g/dL (6.3-8.2); Triglycerides 206 mg/dL (35-150)
== END ==
PROVIDERS: PCP Family Medicine; Referring Provider Family Medicine; Visit Provider Family Medicine
DX: E78.2 Mixed hyperlipidemia (principal); K76.0 Fatty (change of) liver, not elsewhere classified; R53.82 Chronic fatigue, unspecified
CPT/HCPCS: 36415; 80053; 80061; 85025

== ENCOUNTER → 2025-02-14 09:22 | Outpatient (CLI) | payer MEDICARE, OTHER, SELFPAY ==
[2025-02-14 10:48] LABS: Add Manual Diff / Slide Review NO; Hematocrit 40.4 % (36-46); Hemoglobin 14.2 g/dL (12.0-16.0); Lymphocytes Absolute Auto 1300 /uL (1100-4500); Mean Corpuscular HGB Conc 35.0 % (30-36); Mean Corpuscular Hemoglobin 32.5 PG (26-34); Mean Corpuscular Volume 92.7 fL (80-100); Platelet Count 322 X10^3/uL (150-400)
[2025-02-14 11:07] LABS: Alanine Aminotransferase 19 IU/L (<35); Albumin 4.6 g/dL (3.5-5.0); Albumin Globulin Ratio 2.0 (1.0-2.8); Alkaline Phosphatase 89 U/L (38-126); Blood Urea Nitrogen 10 mg/dL (7-17); Calcium 9.8 mg/dL (8.4-10.2); Carbon Dioxide 26 mmol/L (22-32); Chloride 103 mmol/L (98-107); Estimated Glomerular Filt Rate > 60 mL/min (>60); Globulin 2.3 g/dL (1.7-4.1); Glucose 105 mg/dL (70-99); HEMOLYSIS < 15 (0-50); Lipase 105 U/L (23-300); Potassium 4.8 mmol/L (3.4-5.1); Sodium 138 mmol/L (137-145); Total Protein 6.9 g/dL (6.3-8.2)
== END ==
PROVIDERS: Family Medicine; PCP Family Medicine; Referring Provider Family Medicine; Visit Provider Family Medicine
DX: R10.11 Right upper quadrant pain (principal)
CPT/HCPCS: 36415; 80053; 83690; 85025

== ENCOUNTER → 2025-02-14 10:07 | Outpatient (CLI) | payer MEDICARE, OTHER, SELFPAY ==
--- NOTE | 2025-02-14 10:11 | DI.US.S_ITS ---
PROCEDURE: US ABDOMEN LIMITED INDICATIONS: oss cholesystasis TECHNIQUE: Real-time focused scanning was performed of the abdomen, with image documentation. COMPARISON: [facility], [place], US ABDOMEN COMPLETE, 02/18/2021, 8:11. FINDINGS: Liver measures 16 cm. Increased heterogeneous echotexture. Main portal vein is patent. Right lobe cyst appears simple measuring 1.8 cm. Unremarkable gallbladder. CBD is nondilated at 3 mm. IMPRESSION: No acute right upper quadrant abnormality. Echogenic liver, nonspecific, most commonly due to steatosis. Dictated by: Calvin Retana M.D. on 02/14/2025 at 13:33 Approved by: Calvin Retana M.D. on 02/14/2025 at 13:34
== END ==
PROVIDERS: PCP Family Medicine; Referring Provider Family Medicine; Visit Provider Family Medicine
DX: K76.89 Other specified diseases of liver (principal); R10.11 Right upper quadrant pain
CPT/HCPCS: 36415; 76705; 80053; 83690; 85025

== ENCOUNTER → 2025-04-23 08:59 | Outpatient (CLI) | payer MEDICARE, OTHER, SELFPAY ==
[2025-04-23 10:01] LABS: Cholesterol 256 mg/dL (140-199); HDL Cholesterol 53 mg/dL (40-60); Triglycerides 175 mg/dL (35-150)
== END ==
PROVIDERS: PCP Family Medicine; Referring Provider Family Medicine; Visit Provider Family Medicine
DX: E78.2 Mixed hyperlipidemia (principal)
CPT/HCPCS: 36415; 80061